=== PATIENT | female | born 1970 | race Caucasian/White ===

== ENCOUNTER 2022-01-27 22:24 | Emergency (ER) | payer BC, SELFPAY ==
[2022-01-27 22:32] VITALS: BP 134/78; PULSE 88; RESP 16; TEMP 36.6; O2SAT 98; BMI 31.0
--- NOTE | 2022-01-27 23:08 | CRLHL7_ITS ---
For Patients: As a result of the Century Cures Act, medical imaging exams and procedure reports are released immediately into your electronic medical record. You may view this report before your referring provider. If you have questions, please contact your health care provider. INDICATION: Mid-chest chest pain and into back TECHNIQUE: Chest radiograph 1 view COMPARISON: None FINDINGS: The sensitivity and specificity of the exam are moderately limited by the patient`s body habitus. Mediastinum: The mediastinum is normal in appearance. The heart silhouette is normal in size and morphology. Lung: Both lungs are unremarkable in appearance. No sign of pleural effusion seen. No pneumothorax is identified. Bone and Soft tissue: Unremarkable for age. IMPRESSION: 1. No acute cardiopulmonary disease is seen. Dictated by: Navin García MD @ 01/27/2022 23:32:10 (Electronically Signed)
[2022-01-27] MEDS: GI COCKTAIL (VISC LIDO/ANTACID) 30 ML PO (23:29)
[2022-01-27 23:40] VITALS: BP 100/56; PULSE 70; RESP 16; O2SAT 96
[2022-01-27 23:45] LABS: Albumin* 4.3 g/dL (3.3-5.0); Chloride* 103 mmol/L (96-114); Sodium* 138 mmol/L (135-149)
[2022-01-27 23:46] LABS: Potassium* 3.7 mmol/L (3.6-5.1)
[2022-01-27 23:48] LABS: Creatinine* 0.8 mg/dL (0.5-1.5); Est. Creatinine Clearance* 68.82; Estimated Glomerular Filt Rate 89 ml/min
[2022-01-27 23:49] LABS: Alanine Aminotransferase* 33 U/L (4-35); Alkaline Phosphatase* 81 U/L (40-150); Aspartate Amino Transferase* 29 U/L (12-35); Bilirubin Direct* 0.2 mg/dL (0.0-0.5); Bilirubin Total* 0.5 mg/dL (0.1-1.5); Blood Urea Nitrogen* 16 mg/dL (7-30); Calcium* 8.9 mg/dL (8.4-10.6); Carbon Dioxide* 28 mmol/L (20-32); Glucose* 133 mg/dL (60-115); Total Protein* 7.3 g/dL (6.0-8.3)
[2022-01-27 23:58] LABS: Troponin, Point-of-Care* 0.01 ng/ml (0.01-0.04)
[2022-01-28] VITALS: BP 89/64; PULSE 68; RESP 16; O2SAT 98
[2022-01-28 00:04] LABS: C Reactive Protein* < 0.5 mg/dL (0.5-1.0); Troponin I* < 0.01 ng/mL (0.01-0.04)
[2022-01-28 00:20] VITALS: BP 94/52; PULSE 65; RESP 16; O2SAT 96
--- NOTE | 2022-01-28 10:23 | ED_ITS ---
HPI - Chest Pain General Chief Complaint: Chest Pain Stated Complaint: CHEST PAINS Time Seen by Provider: 01/27/22 22:55 Source: patient and RN notes reviewed Mode of arrival: ambulatory Limitations: no limitations History of Present Illness HPI narrative: 51-year-old woman presenting to the emergency department accompanied by her complaint mid chest pain. About 8 hours ago started feeling heavy sensation there thought maybe was indigestion. Describes it as a pressure burning component as well. Thought maybe it was indigestion and 4 hours ago try Prilosec Tums and aspirin and forcing a belch. Trying to go to sleep tonight just could not get comfortable and was feeling more discomfort between her shoulder blades. Started having numbness or tingling is also in her right arm and more concerned. Otherwise not short of breath. No cough or cold symptoms recently. Discomfort is not really pleuritic. Does have an underlying history of celiac disease. 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 Does have semi recurrent urinary tract infections and is current finishing course of Keflex. Family history is noncontributory with maternal grandfather with coronary artery disease Initial blood pressure she notes rather elevated for her at 134 systolic. Related Data Home Medications Medication Instructions Recorded Confirmed levothyroxine 112 mcg tablet mcg 01/27/22 Allergies Allergy/AdvReac Type Severity Reaction Status Date / Time No Known Drug Allergies Allergy Verified 01/27/22 22:35 Review of Systems Status of ROS Reports: 6 or more systems reviewed and unremarkable except as noted in History and below [facility] Medical History Hypothyroid Social History Smoking Status: Never smoker Do you use any of these nicotine containing products: None How often do you have a drink containing alcohol: never AUDIT-C Alcohol total score: 0 Non-prescribed substance use: denies use Exam Narrative Exam Narrative: Pleasant. Good energy. NAD. Cranial nerves 2-12 intact. Moving all extremities without difficulty. Well perfused peripherally. Strong and Equal pulses upper extremities and equal femoral pulses. Skin is warm and dry. Some acneiform lesions on face. Mouth is moist Lungs are clear. No significant reproducible back pain. Cardiovascular regular rate and rhythm Abdomen is normoactive bowel sounds is a uncomfortable to palpation in the epigastrium. Const Vital Signs, click to edit/add: Vital Signs - 24 hr 01/27/22 22:32 01/27/22 23:40 01/28/22 00:00 Temperature 97.8 F Pulse Rate [Left Pulse Oximeter] 88 70 68 Respiratory Rate 16 16 16 Blood Pressure [Left Upper Arm] 134/78 100/56 L 89/64 L Pulse Oximetry 98 96 98 Oxygen Delivery Method Room Air Room Air Room Air 01/28/22 00:20 Temperature Pulse Rate [Left Pulse Oximeter] 65 Respiratory Rate 16 Blood Pressure [Left Upper Arm] 94/52 L Pulse Oximetry 96 Oxygen Delivery Method Room Air Course Course Hospital Course: Interviewed and exam as above Collected labs watched on monitor. Also ordered for GI cocktail. Reevaluation(s) Reevaluation #1: Overall improved with diminished burning sensation. Still with some sense of that pressure. And wanted to go home with normal labs and blood pressure improved. Vital Signs Vital signs: Initial Vital Signs Temperature 97.8 F 01/27/22 22:32 Temperature Source Temporal Artery Scan 01/27/22 22:32 Pulse Rate 88 01/27/22 22:32 Pulse Rhythm 01/27/22 22:32 Respiratory Rate 16 01/27/22 22:32 Blood Pressure 134/78 01/27/22 22:32 Blood Pressure Mean 96 01/27/22 22:32 Blood Pressure Position Sitting 01/27/22 22:32 Pulse Oximetry 98 01/27/22 22:32 Oxygen Delivery Method 01/27/22 22:32 Vital Signs Temperature 97.8 F 01/27/22 22:32 Pulse Rate 88 01/27/22 22:32 Respiratory Rate 16 01/27/22 22:32 Blood Pressure 134/78 01/27/22 22:32 Pulse Oximetry 98 01/27/22 22:32 Oxygen Delivery Method 01/27/22 22:32 Temperature 97.8 F 01/27/22 22:32 Pulse Rate 65 01/28/22 00:20 Respiratory Rate 16 01/28/22 00:20 Blood Pressure 94/52 L 01/28/22 00:20 Pulse Oximetry 96 01/28/22 00:20 Oxygen Delivery Method 01/28/22 00:20 MDM - Chest Pain MDM Narrative Medical decision making narrative: No Events on residential monitor. EKG reviewed by me shows normal sinus at 63 Labs are unremarkable. Troponin normal. Somewhat improved with GI cocktail. Discussed that this does not rule out cardiac etiology. Chest one-view portable without pneumothorax. WNL. Lab Data Attestation: I reviewed the patient's lab results. Labs: Lab Results 01/27/22 01/27/22 Range/Units 23:25 23:25 Sodium 138 (135-149) mmol/L Potassium 3.7 (3.6-5.1) mmol/L Chloride 103 (96-114) mmol/L Carbon Dioxide 28 (20-32) mmol/L BUN 16 (7-30) mg/dL Creatinine 0.8 (0.5-1.5) mg/dL Estimated Creat Clear 68.82 Estimated GFR 89 ml/min Glucose 133 H (60-115) mg/dL Calcium 8.9 (8.4-10.6) mg/dL Total Bilirubin 0.5 (0.1-1.5) mg/dL Direct Bilirubin 0.2 (0.0-0.5) mg/dL AST 29 (12-35) U/L ALT 33 (4-35) U/L Alkaline Phosphatase 81 (40-150) U/L Troponin I < 0.01 L (0.01-0.04) ng/mL C-Reactive Protein < 0.5 L (0.5-1.0) mg/dL Total Protein 7.3 (6.0-8.3) g/dL Albumin 4.3 (3.3-5.0) g/dL POC Troponin I 0.01 (0.01-0.04) ng/ml Discharge Plan Discharge Clinical Impression: Atypical chest pain Patient Disposition: Home w/ Parent or Adult Condition: Improved Additional Instructions: Consider taking an H2 chalo or proton pump inhibitor daily for a week or 2. Could also try liquid antacid /anti-gas for flare. Return for increasing in pain or pressure, particularly if associated with shortness of breath, lightheadedness and unrelieved with liquid antacid /anti- gas within an hour. Discuss with the primary care provider how you might want to work this up further. Prescriptions: No Action levothyroxine 112 mcg tablet Follow Up/Referrals: Yvette Leong MD [Primary Care Provider] - Stand Alone Forms: [employer] Info Instructions
== END 2022-01-28 00:37 | disposition home or self-care (01) ==
PROVIDERS: Emergency Provider Family Medicine; PCP Family Medicine
DX: R07.89 Other chest pain (principal)
CPT/HCPCS: 36415; 71045; 80048; 80076; 84484; 86140; 93005; 99283; 99284; 99285; A9270

== ENCOUNTER 2023-07-30 16:01 | Emergency (ER) | payer BC, SELFPAY ==
[2023-07-30 16:12] VITALS: BP 144/77; PULSE 86; RESP 16; TEMP 36.1; O2SAT 98
[2023-07-30 17:06] LABS: Appearance Urine Clear (Clear); Bilirubin Urine Negative (Negative); Blood Urine Trace-lysed (Negative); Color Urine Yellow (Yellow); Glucose Urine Negative (Negative); Ketones Urine Negative (Negative); Leukocyte Esterase Urine Negative (Negative); Nitrite Urine Negative (Negative); Protein Urine Negative (Negative); Urobilinogen Urine 0.2 (0.2-1.0)
--- NOTE | 2023-07-30 17:14 | ED_ITS ---
HPI - Abdominal Pain General Chief Complaint: Abdominal Pain Stated Complaint: abdominal pain Time Seen by Provider: 07/30/23 17:05 History of Present Illness HPI narrative: This 53-year-old female comes in reporting 3 days of lower abdominal pain that has a baseline mild constant component but gets significantly in the worse when standing up and stretching her abdomen. She does not report any fever, dysuria, or altered bowel function. She has not had any nausea and vomiting. She does not report any loss of appetite. She states that she did have some dysuria symptoms about a year ago and that was a small bladder tumor found that was removed and found to be benign. She reports that she has otherwise been in good health. 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 Related Data Home Medications Medication Instructions Recorded Confirmed levothyroxine 112 mcg tablet mcg 01/27/22 07/02/23 Allergies Allergy/AdvReac Type Severity Reaction Status Date / Time gluten Allergy Intermediate Verified 07/30/23 16:11 Review of Systems Status of ROS Reports: 10 or more systems reviewed and unremarkable except as noted in History and below Narrative Constitutional: No fevers, no weight gain or loss. Eyes: No discharge. No vision changes. HENT: No congestion, no sore throat, no ear pain. Cardiovascular: No chest pain, no palpitations. Respiratory: No shortness of breath, no wheezes, no cough. Gastrointestinal: No vomiting, no diarrhea. Lower abdominal pain as described above. Genitourinary: No dysuria, no hematuria. Musculoskeletal: Normal range of motion. Skin: No rashes, no pruritis. Neurological: No dizziness, weakness, sensory change, speech change. Endo/Heme/Allergies: No bruising or bleeding. No polydipsia. Pysch: no suicidality, no anxiety, no insomnia. All other systems reviewed and are negative. [facility] Medical History (Updated 07/30/23 @ 19:22 by Alvarez Ji MD) Benign bladder tumor ?D30.3 - Benign neoplasm of bladder (ICD-10) Pyelonephritis ?N12 - Tubulo-interstitial nephritis, not specified as acute or chronic (ICD- 10) Hypothyroid ?E03.9 - Hypothyroidism, unspecified (ICD-10) Surgical History (Updated 07/02/23 @ 19:46 by Brandy Doherty NP) S/P bladder tumor excision with fulguration ?Z98.890 - Other specified postprocedural states (ICD-10) Hx of cystoscopy ?Z98.890 - Other specified postprocedural states (ICD-10) Social History Smoking Status: Never smoker Do you use any of these nicotine containing products: None How often do you have a drink containing alcohol: never AUDIT-C Alcohol total score: 0 Non-prescribed substance use: denies use service: No Exam Narrative: Exam Narrative: Constitutional: Well-developed, well-nourished, no acute distress. HEENT: Normocephalic, atraumatic. Neck: Normal range of motion. Nontender. Supple. Heart: Regular. No murmurs. Normal rate. Intact distal pulses. Lungs: Clear to auscultation. No chest discomfort. No wheezes, rhonchi, or rales. Abdomen: Normal bowel sounds. Tenderness in the lower abdomen below the umbilicus. No rebound tenderness. Pain is reproducible when standing upright and stretching her abdomen. Genitalia: Deferred. Back: No midline tenderness. Normal range of motion. Extremities: Normal range of motion. No injury. Skin: Intact. No rash. Warm. No erythema or pallor. Neurologic: No altered sensation. No weakness. Alert and oriented. Psychiatric: No suicidality. No anxiety or depression. No insomnia. Nursing notes and vitals signs are reviewed. Const: Vital Signs, click to edit/add: Vital Signs - 24 hr 07/30/23 16:12 Temperature 97.0 F L Pulse Rate [Right Pulse Oximeter] 86 Respiratory Rate 16 Blood Pressure [Ri ght Upper Arm] 144/77 H Pulse Oximetry 98 Oxygen Delivery Me thod Room Air Course Vital Signs Vital signs: Initial Vital Signs Temperature 97.0 F L 07/30/23 16:12 Temperature Source Temporal Artery Scan 07/30/23 16:12 Pulse Rate 86 07/30/23 16:12 Pulse Rhythm Regular 07/30/23 16:12 Pulse Strength 3+ Normal 07/30/23 16:12 Respiratory Rate 16 07/30/23 16:12 Blood Pressure 144/77 H 07/30/23 16:12 Blood Pressure Mean 99 07/30/23 16:12 Blood Pressure Position Sitting 07/30/23 16:12 Pulse Oximetry 98 02/15/24 16:12 Oxygen Delivery Method Room Air 07/30/23 16:12 Vital Signs Temperature 97.0 F L 07/30/23 16:12 Pulse Rate 86 07/30/23 16:12 Respiratory Rate 16 07/30/23 16:12 Blood Pressure 144/77 H 07/30/23 16:12 Pulse Oximetry 98 07/30/23 16:12 Oxygen Delivery Method Room Air 07/30/23 16:12 Temperature 97.0 F L 07/30/23 16:12 Pulse Rate 86 07/30/23 16:12 Respiratory Rate 16 07/30/23 16:12 Blood Pressure 144/77 H 07/30/23 16:12 Pulse Oximetry 98 07/30/23 16:12 Oxygen Delivery Method Room Air 07/30/23 16:12 MDM - Abdominal Pain MDM Narrative Medical decision making narrative: This patient comes in with concern about pain in her lower abdomen that is reproducible when standing up straight and stretching of those structures. This is been present for several days and she does not report any particular injury event or strenuous activity. Urinalysis is obtained and shows no sign of hematuria or infection. An IV is established and labs acquired. Labs returned with normal results and CT imaging by my review shows no obvious findings. And we are awaiting Radiology over read but this is a slow process as CRL is not functioning currently. 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 I was agreeable to this plan is the patient does not have any abnormal vital signs, has normal bowel sounds, and does not have rebound tenderness. Given the fact that her abdominal pain is reproducible when standing up straight and stretching the musculature in structures of her lower abdomen this may be due to a musculoskeletal cause. Lab Data Labs: Lab Results 07/30/23 07/30/23 Range/Units 16:59 17:43 WBC 7.11 (4.50-11.00) K/uL RBC 5.05 (4.00-5.20) m/uL Hgb 14.5 (12.0-16.0) gm/dL Hct 44.8 (33.0-51.0) % MCV 89 (80-100) fL MCH 29 (26-34) pg MCHC 32 (32-36) gm/dL RDW Coeff of [place] 13.0 (11.5-15.5) % Plt Count 266 (140-440) K/uL Neut % (Auto) 38.2 L (42.0-72.0) % Lymph % (Auto) 43.6 (20-44) % [place] % (Auto) 7.3 (0.0-11.0) % Eos % (Auto) 10.1 H (0.0-7.0) % Baso % (Auto) 0.7 (0.0-3.0) % Neut # (Auto) 2.70 (1.7-7.0) K/uL Lymph # (Auto) 3.10 H (0.90-2.90) K/uL [place] # (Auto) 0.50 (0.00-0.90) K/UL Eos # (Auto) 0.70 H (0.00-0.50) K/uL Baso # (Auto) 0.05 (0.00-0.30) K/uL Abs Immat Gran (auto) 0.01 (0.00-0.30) K/uL Imm/Tot Granulo (auto) 0.1 % Sodium 140 (135-149) mmol/L Potassium 3.6 (3.6-5.1) mmol/L Chloride 104 (96-114) mmol/L Carbon Dioxide 30 (20-32) mmol/L Anion Gap 6 L (7-15) mEq/L BUN 18 (7-30) mg/dL Creatinine 0.8 (0.5-1.5) mg/dL Estimated Creat Clear 70.23 Estimated GFR 88 ml/min Glucose 98 (60-115) mg/dL Calcium 9.6 (8.4-10.6) mg/dL Urine Color Yellow (Yellow) Urine Appearance Clear (Clear) Urine pH 6.0 (5.0-8.5) Ur Specific [place] 1.010 (1.000-1.030) Urine Protein Negative (Negative) Urine Glucose (UA) Negative (Negative) Urine Ketones Negative (Negative) Urine Blood Trace-lysed A (Negative) Urine Nitrite Negative (Negative) Urine Bilirubin Negative (Negative) Urine Urobilinogen 0.2 (0.2-1.0) Ur Leukocyte Esterase Negative (Negative) Urine RBC 0-2 (0-2) Urine WBC 0-2 (0-5) Ur Squamous Epith Cells Few (None-Few) Urine Bacteria None (None) Discharge Plan Discharge Clinical Impression: Abdominal pain Patient Disposition: Home, Self-Care Condition: Stable Additional Instructions: Continue current plans. Use [id number] medicines as needed and directed. Follow up with MD or return if worsening. It Prescriptions: No Action levothyroxine 112 mcg tablet Follow Up/Referrals: Yvette Leong MD [Primary Care Provider] - Stand Alone Forms: [employer] Info Instructions
--- NOTE | 2023-07-30 17:31 | CT_ITS ---
Patient: DEEPA MASON Facility:?[facility] Patient ID:?[id number] Site Patient ID:?[id number]. Site :?[id number] Study:?CT-Abdomen/Pelvis W/ ISOVUE 370-07/30/2023 6:33:27 PM Ordering Physician:ERASTO Final Report: Indication: Lower abdominal pain Technique: Postcontrast CT abdomen and pelvis. 85 cc Isovue 370 intravenous contrast. Please note that all CT scans at this facility use dose modulation, iterative reconstruction, and/or weight-based dosing when appropriate to reduce radiation dose to as low as reasonably achievable. Comparison: None Findings: Mild dependent areas of atelectasis are present within the lung bases. The appendix is within normal limits. Mild fatty infiltration of the liver. 1 cm hypodensity is present within the right hepatic lobe which is too small to characterize but likely represents a benign finding. No ascites. The spleen is normal. Normal pancreas. Adrenal glands normal. Kidneys within normal limits. Gallbladder unremarkable. No adenopathy. No bowel obstruction. Bladder unremarkable. Right hip replacement hardware. No pelvic mass. Uterus and ovaries are normal. Mild diverticulosis. No diverticulitis. There is no fracture. Impression: No acute intra-abdominal or intrapelvic pathology. Mild diffuse hepatic steatosis. Probable cyst or hemangioma within the liver. This measures 1 cm. Further evaluation with targeted liver ultrasound is recommended to evaluate for the possibility of hemangioma. Preliminary report was provided at 07/30/2023 18:41:04. Please note that all CT scans at this facility use dose modulation, iterative reconstruction, and/or weight-based dosing when appropriate to reduce radiation dose to as low as reasonably achievable. Dictated by Jhonny Fleming MD @ 07/31/2023 2:31:45 PM Signed by:?Jhonny Fleming MD @07/31/2023 2:31:45 PM (Electronic Signature)
[2023-07-30 17:37] LABS: RBC Urine 0-2 (0-2); Squamous Epithelial Cell Urine Few (None-Few); WBC Urine 0-2 (0-5)
[2023-07-30 17:54] LABS: White Blood Count* 7.11 K/uL (4.50-11.00)
[2023-07-30 17:55] LABS: Basophils Absolute Auto 0.05 K/uL (0.00-0.30); Basophils Percent Auto 0.7 % (0.0-3.0); Eosinophils Percent Auto 10.1 % (0.0-7.0); Hematocrit 44.8 % (33.0-51.0); Hemoglobin* 14.5 gm/dL (12.0-16.0); Immature Granulocytes Abs Auto 0.01 K/uL (0.00-0.30); Immature Granulocytes Pct Auto 0.1 %; Lymphocytes Percent Auto 43.6 % (20-44); Mean Corpuscular HGB Conc 32 gm/dL (32-36); Mean Corpuscular Hemoglobin 29 pg (26-34); Mean Corpuscular Volume 89 fL (80-100); Monocytes Percent Auto 7.3 % (0.0-11.0); Neutrophils Percent Auto 38.2 % (42.0-72.0); Platelet Count* 266 K/uL (140-440); Red Blood Count 5.05 m/uL (4.00-5.20)
[2023-07-30 17:58] LABS: Slide Review Reflex No
--- OUTSIDE RECORDS SUMMARY | 2023-07-30 18:18 | XMS_ITS | Clinical Summary ---
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 [facility] Allergies No known active allergies Medications Medication Sig Dispensed Refills Start Date End Date Status Multiple Vitamins-Minerals (MULTIVITAMIN OR) Take 1 tablet by mouth daily (every 24 hours). 100 13 04/06/2007 Active omega-3 fatty acids (FISH OIL) 1000 MG capsule daily (every 24 hours). LW Comment:1200MG 10/02/2010 Active fexofenadine (OSMIN) 180 MG tablet Take 1 tablet by mouth daily as needed. LW Addl Instr:Indicated for: Allergies 30 11 10/02/2010 Active ALBUterol sulfate HFA 108 (90 BASE) MCG/ACT inhaler 1-2 puffs every 4 hours as needed. LW Addl Instr:Indicated for: Asthma 8.5 3 10/02/2010 Active cholecalciferol (VITAMIN D3) 1000 UNITS tabletIndications:INGRIS HALL ThuOctober 29, 2015 9:04 AM Taking 2000 IU QD Take 1 tablet by mouth daily (every 24 hours). 90 12/18/2009 Active Ascorbic Acid (VITAMIN C-HAN HIPS) 1000 MG tablet Take 1,000 mg by mouth daily. Active nitrofurantoin monohydrate macrocrystal (MACROBID) 100 MG capsuleIndications:U rinary Tract Infection Take 1 Capsule by mouth two times a day. Indications: Urinary Tract Infection 10 Capsule 10/18/2020 Active levothyroxine (SYNTHROID) 125 MCG tabletIndications:Hy pothyroidism, unspecified type (HRC) Take 1 Tablet by mouth daily. 90 Tablet 2 03/13/2021 Active Active Problems Problem Noted Date Diagnosed Date Blepharitis 12/25/2014 Celiac disease 04/08/2013 Overview: Elevated celiac antibodies but pt declined EGD because she eats a gluten free diet anyway since her daughter has celiac disease. Hypothyroidism 04/06/2007 Overview: Hypothyroidism Primary Immunizations Name Administration Dates Next Due Flu Vac Preserv Free (3+yrs) 04/14/2013,03/29/20 09,04/14/2007 [id number] 04/12/2009 Influenza IIV4 (Quadrivalent ) 0.5mL (00945) 03/19/2020,03/17/2019,03/16/2018,2016,06/06/2015 Influenza, Unspecified Formulation 03/16,04/16/2015,04/07/2014,2008,04/14/2007 MMR 01/30/2006 Pfizer Monovalent 12+ Purple Top 07/11/2020,01/0 11/2020 TDAP (ADACEL) 01/30/2006 Td 08/07/2015 Family History Medical History Relation Name Comments Celiac Disease Mother Celiac Disease Daughter Celiac Disease Maternal Grandfather Cancer, Breast Maternal Grandmother Cancer, Colon Maternal Grandmother Colon Polyps Maternal Uncle Cancer, Breast Paternal Grandmother Cancer Negative Family History Cancer, Endometrial Negative Family History Cancer, Uterine Negative Family History Diethylstilbestrol Exposure Negative Family History Prolapse/Pelvic Parts Falling Down Negative Family His tory Urinary Incontinence Negative Family History Relation Name Status Comments Father Alive Mother Alive Brother 1 Alive Brother 2 Alive Daughter Maternal Grandfather Maternal Grandmother Maternal Uncle Paternal Grandmother Sister Alive Social History Tobacco Use Types Packs/Day Years Used Date Smoking Tobacco: Never Smokeless Tobacco: Never Alcohol Use Standard Drinks/Week Comments Yes 2 (1 standard drink = 0.6 oz pur e alcohol) monthly PHQ-2 Answer Date Recorded PHQ-2 Score 0 06/05/2020 Sex and Gender Information Value Date Recorded Sex Assigned at Not on file Gender Identity Not on file Sexual Orientation Not on file Last Filed Vital Signs Vital Sign Reading Time Taken Comments Blood Pressure 113/76 10/17/2020 2:16 PM CDT Pulse 58 10/17/2020 2:16 PM CDT Temperature 36.7 ??C (98.1 ??F) 10/17/2020 2:27 PM CD T Respiratory Rate 18 12/04/2015 2:28 PM CDT Oxygen Saturation - - Inhaled Oxygen Concentration - - Weight 82.2 kg (181 lb 3.2 oz) 10/17/2020 2:16 P M CDT Height 160 cm (5' 2.99) 10/17/2020 2:16 PM CDT Body Mass Index 32.11 10/17/2020 2:16 PM CDT Plan of Treatment Health Maintenance Due Date Last Done Comments Hep C Screening (Preventive Services) 1970 HepB (1) 1970 Adult Preventive Visit 08/03/2019 08/03/2018 Zoster/Shingles (1 of 2) 2020 Mammogram 07/05/2021 07/05/2020, 06/15, 01/06/2018, Additional history exists Colonoscopy 10/02/2022 10/02/2017 (Completed) COVID-19 Vaccine ( season) 2023 07/11/2020, 06/20/2020 Influenza (#1) 2023 03/19/2020, 1008/2018, 03/16/2018, Additional history exists Cervical Cancer Screening 08/03/20232018, 08/07/2015, 04/08/2013, Additional history exists Cholesterol 06/05/2025 06/05/2020, 07/16, 08/07/2015, Additional history exists DTaP/Tdap/Td (3 - Tdap) 08/07/2025 08/07/2015, 01/30 HIV Screening (Preventive Services) Completed 06/05/2020 HepA Aged Out No longer eligi ble based on patient's age to complete this topic Hib Aged Out No longer eligi ble based on patient's age to complete this topic IPV (Polio) Aged Out No longer eligi ble based on patient's age to complete this topic MCV4 Aged Out No longer eligi ble based on patient's age to complete this topic Pneumococcal Aged Out No longer eligi ble based on patient's age to complete this topic Procedures Procedure Name Priority Date/Time Associated Diagnosis Comments MM MAMMOGRAM SCREENING BILAT W 3D WEI W CAD Routine 07/05/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 Screening breast examination HIV 1/2 AG/AB 4TH GEN Routine 06/05/2020 7:36 AM SHUTTLE TRUCK DRIVER Screening for HIV (human immunodeficiency virus) LIPID PANEL & DIRECT LDL (IF NEEDED) Routine 06/05/2020 7:36 AM SHUTTLE TRUCK DRIVER Hyperlipidemia, unspecified hyperlipidemia type ANATOMICAL PATH LIQUID BASED Routine 08/03/2018 10:09 AM SHUTTLE TRUCK DRIVER from Last 3 Months or Most Recently Relevant to Health Maintenance Results * (ABNORMAL) MM Mammogram Screening Bilat W 3D Wei W CAD (07/05/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) Anatomical Region Laterality Modality Breast Bilateral Mammography Impressions 07/05/2020 10:49 AM SHUTTLE TRUCK DRIVER : ACR BI-RADS Category 0: Need Additional Imaging Evaluation RECOMMENDATION: Spot Tomosynthesis The results and recommendations of this examination will be communicated to the patient and the imaging center will attempt to schedule any recommended follow up with the patient. Narrative 07/05/2020 10:49 AM SHUTTLE TRUCK DRIVER MM MAMMOGRAM SCREENING BILAT W 3D WEI W CAD performed on 07/05/20 Compared to: 06/28/2019 MM Mammogram Screening Bilat W 3D Wei W CAD, 01/06/2018 MM Mammogram Screening Bilat W CAD, and 10/07/2016 MM Mammogram Screening Bilat W CAD ?? FINDINGS: Bilateral screening mammogram was performed with the assistance of Computer-Aided Detection and breast tomosynthesis. The breasts are heterogeneously dense, which may obscure small masses. There is an asymmetry in the right breast on the CC view laterally at posterior depth. The remainder of the breast tissue is unremarkable. Hillary Dawson MD RAD LUIS * HIV 1/2 Ag/Ab 4th Generation (06/05/2020 7:36 AM SHUTTLE TRUCK DRIVER) HIV 1/2 Antigen/Antib richard (4th generation) Negative (Non Reactive) Negative (Non Reactive) 06/05/2020 2:00 PM SHUTTLE TRUCK DRIVER [facility] Comment:HIV-1 p24 Antigen an d HIV-1/HIV-2 Antibody not detected Blood Venipuncture / Unknown 06/05/2020 7:36 AM SHUTTLE TRUCK DRIVER 06/05/2020 7:36 AM SHUTTLE TRUCK DRIVER Hillary Dawson MD LAB_1 Performing Organization Address [facility] Co de Phone Number [facility] [address] * (ABNORMAL) Lipid Panel - LDLD If Trig High (06/05/2020 7:36 AM SHUTTLE TRUCK DRIVER) Cholesterol 265(H) 0 - 199 mg/dL 06/05/2020 9:58 AM [facility] Triglyceride 225(H) <=149 mg/dL 06/05/2020 9:58 AM [facility] HDL Cholesterol 53 >=40 mg/dL 0 9:58 AM [facility] LDL, Calculated 167(H) <130 mg/dL 0 9:58 AM [facility] Non HDL Chol, Calculated 212 mg/dL 06/05/2020 9:58 AM [facility] Cholesterol/HDL Ratio 5.0 06/05/2020 9:58 AM [facility] Hours Fasting 12 06/05/2020 9:58 AM [facility] Blood Venipuncture / Unknown 06/05/2020 7:36 AM SHUTTLE TRUCK DRIVER 06/05/2020 7:36 AM SHUTTLE TRUCK DRIVER Hillary Dawson MD LAB_1 Performing Organization Address City/[facility]/ZIP Co de Phone Number [facility] [address] [place] [address], [facility] [phone] * Pap Smear (08/03/2018 10:09 AM SHUTTLE TRUCK DRIVER) 08/03/2018 10:0 9 AM SHUTTLE TRUCK DRIVER Narrative CONOR RODRIGUEZ - 08/24/2018 4:12 PM CDT FINAL GYNECOLOGICAL CYTOLOGY REPORT Pathology #: [id number] ?Date Obtained: 08/03/2018 ? Date Received: 08/04/2018 INTERPRETATION/RESULTS: Negative for Intraepithelial Lesion or Malignancy. Fungal organisms morphologically consistent with Leeann species. SPECIMEN ADEQUACY: Satisfactory for Evaluation. ??Endocervical cells/transformation zone component present. Verified on 08/19/2018 ??by NADIA QUEZADA, CT(ASCP) (electronic signature) CLINICAL NOTES: ?Abnormal bleeding: No, LMP: 07/29/18, Menstrual status: None ?Apply, Current form of therapy: None apply LIQUID BASED PAP SMEAR SPECIMEN TYPE: ?ROUTINE CERVICAL PAP TEST PLEASE NOTE: The pap smear is a screening test designed to aid in the detection of cervical cancer and its precursor lesions. It is not a diagnostic procedure and should not be used as the sole means of detecting cervical cancer. Both false-positive and false-negative reports may occur. 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
--- OUTSIDE RECORDS SUMMARY | 2023-07-30 18:18 | XMS_ITS | Data Portability ---
Author Name Unknown Address [address] [place] [address] Phone [phone] Organization [facility], [facility] Address [address] [place] [address] Care Team Providers Care Customer Operations Associate Name Role Phone JAKFLYNN BAEZ Referring Provider EVARISTO TREVIÑO Primary Care Provider [phone] Assessment No assessment recorded. Plan of Treatment Reminders Order Date Submit Date Provider Last Modified By Organization Details Last Modified Time Details Appointments NEW PATIENT 20 2023 02:50P Judy Cruz MD Not available Not available Not available Lab None recorded. Referral None recorded. Procedures None recorded. Surgeries transuret hral resection of bladder tumor (SURG) 2021 [email or web address] 9 [facility], [address] [place] [address], [id number], 04/25/2022 10:37:45 Imaging US, renal - PLEASE CONTACT PATIENT TO SCHEDULE microscop ic hematuria 2021 [email or web address] [facility], [address] [place] [address], [id number], 04/07/2022 09:27:08 Medication Orders Bactrim DS 800 mg-160 mg tablet 2021 [address] [id number] [facility] [employer], [facility] [address], [address], 10/01/2022 16:11:36 Patient TargetsNo targets recorded. Patient Instructions Encounter Date Encounter Id Patient Instructions Last Modified By Organization Details Last Modified Time 10/01/2022 [id number] Bladder was norm al on cystoscopy today. Will do one more surveillance cystoscopy in 1 year. 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 Benign. Will repeat a cystoscopy in 6 months. Dysuria: Possible UTI. Will start Bactrim x 3 days. Not available 04/04/2022 15:49:18 03/13/2022 [id number] Bladder lesion/microscopic hematuria: Bladder lesion on the midline trigone seen on cystoscopy. It has the appearance of squamous metaplasia. I recommend TURBT ( transurethral resection of bladder tumor). Risks and benefits discussed. Will arrange. Will also get a renal ultrasound for completion of her microscopic hematuria work up. TURBT Risks (transurethral resection of bladder tumor) I discussed the procedure with the patient in details, and informed them of the different steps and the possible complications and side effects, such as and not only, infection, bleeding, urethral stricture, ureteral strictures, bladder perforation, injury to bowel if the tumor is anterior or at the dome, increased LUTS (lower urinary tract symptoms such as frequency, urgency, and burning/pain with voiding), and complications related to anesthesia such as cardiovascular and pulmonary complications. All patient questions were answered. Not available 03/13/2022 14:21:13 Reason for Referral None Reported. Results Created Date Observation Date Name Description Value Unit Range Abnormal Flag LastModifiedBy Organization Detail LastModifiedTime Result Notes None recorded. Problems Name Status Onset Date Resolution Date Notes Provider Name and Address Organization Details Recorded Time Neoplasm of bladder Active 03/12/20 22 Jhonny Cruz MD [address] [place] [address],[address] [place] [address], [phone], [facility] 03/12/2022 22:04:26 Microscopic hematuria Active 03/13/20 22 Jhonny Cruz MD [address] [place] [address],[address], [phone], [facility] 03/13/2022 14:21:20 Problem Notes None recorded. Procedures Surgical History Date Name Laterality Status Provider Name and Address Organization Details Recorded Time 3 Cystoscopy- female completed Jhonny Cruz MD [address] [place] [address],[address], [place], [address], [facility] 10/01/2022 16:21:10 Cystoscopy- female completed Jhonny Cruz MD [address] [facility],[address], [place], [address], [facility] 03/13/2022 14:20:33 Cystoscopy completed Not Available Health Note 1 16:22:00 Imaging Results None recorded. Procedure Notes None recorded. Medical Equipment None Reported. Allergies No known drug allergies Medications Name Sig Start Date Stop Date Status Note LastModified by Organization Details LastModified Time amoxicill in 500 mg capsule TAKE 4 CAPSULES BY MOUTH NOW 03/13 completed Not Available Not Available Not Available hydrocodo ne 5 mg-acetam inophen 325 mg tablet 10/01 completed Not Available Not Available Not Available clindamyc in HCl 150 mg capsule 10/01 completed Not Available Not Available Not Available sulfameth oxazole 800 mg-trimet hoprim 160 mg tablet TAKE 1 TABLET BY MOUTH EVERY 12 HOURS FOR 3 DAYS 10/01 completed Not Available Not Available Not Available minoxidil 2.5 mg tablet 10/01 completed Not Available Not Available Not Available cephalexi n 500 mg capsule TAKE ONE CAPSULE BY MOUTH THREE TIMES DAILY FOR 7 DAYS 03/13 completed Not Available Not Available Not Available levothyro xine 125 mcg tablet 03/13 completed Not Available Not Available Not Available metoprolo l tartrate 50 mg tablet active Not Available Not Available Not Available epinephri ne 0.3 mg/0.3 mL injection , auto-inje ctor 03/13 completed Not Available Not Available Not Available estradiol 0.01% (0.1 mg/gram) vaginal cream 10/01 completed HN: Patient reports no longer taking Not Available Not Available Not Available methylpre dnisolone 4 mg tablets in a dose pack USE PER PACKAGE DIRECTIO NS 03/13 completed Not Available Not Available Not Available doxycycli ne hyclate 20 mg tablet 10/01 completed Not Available Not Available Not Available oxybutyni n chloride 5 mg tablet 10/01 completed Not Available Not Available Not Available levothyro xine 112 mcg tablet active Not Available Not Available Not Available levothyro xine 112mcg 1/day 10/01 completed Not Available Not Available Not Available Alaway 0.025 % (0.035 %) eye drops USE 1 DROP IN BOTH EYES TWICE A DAY 03/13 completed Not Available Not Available Not Available Flowflex COVID-19 Antigen Home Test kit 10/01 completed Not Available Not Available Not Available Vitals Date Recorded Body weight Body height Body mass index (BMI) Provider Name and Address Organization Details Last Updated DateTime 03/13/2022 [id number] 46133 g 160.02 cm 32.8 kg/m2 Not Available Health Note 03/13/2022 13:32:44 Date Recorded Body height Body mass index (BMI) Body weight Provider Name and Address Organization Details Last Updated DateTime 10/01/2022 160.02 cm 33.7 kg/m2 30952.[facility] 10/01/2022 16:10:43 Social History Question Answer Notes LastModified by Organizat ion Details LastModified Time Tobacco Smoking Status Never Smoker Not Available Health Note 03/31/2022 16:22:01 What Is Your Level Of Alcohol Consumption? Occasional [email or web address] Information not available 03/31/2022 What Is Your Level Of Caffeine Consumption? Occasional [email or web address] Information not available 03/31/2022 How Much Tobacco Do You Chew? None [email or web address] Information not available 03/31/2022 Do You Or Have You Ever Used E-cigarettes Or Vape? Never Used Electronic Cigarettes [email or web address] Information not available 03/31/2022 Number Of Pregnancies 3 [email or web address] Information not available 03/11/2022 Number Of Vaginal Deliveries 3 [email or web address] Information not available 03/11/2022 Number Of Caesarean Sections 0 [email or web address] Information not available 03/11/2022 What Was The Date Of Your Most Recent Tobacco Screening? 10/01/2022 Information not available 10/01/2022 What Is Your Relationship Status? [email or web address] Information not available 03/11/2022 Are You Sexually Active? Yes [email or web address] Information not available 03/11/2022 Do You Or Have You Ever Used Smokeless Tobacco? Never Used Smokeless Tobacco [email or web address] Information not available 03/31/2022 Do You Use Any Illicit Or Recreational Drugs? No [email or web address] Information not available 03/31/2022 Has Tobacco Cessation Counseling Been Provided? No Information not available 10/01/2022 Sex: Female Functional Status None recorded. Mental Status None recorded. Family History Relationship Description Onset Age of this Age Resolved Age Notes Maternal Grandmother Family history of breast cancer Maternal Grandmother Family history of cancer of colon Maternal Grandfather Family history of diabetes mellitus Maternal Grandfather Family history of cardiac disorder Medical History Condition Response Sexually Transmitted Infection N Diabetes N Bleeding Disorder N High Blood Pressure N Kidney Stones N Cancer N Depression N Lung Disease N High Cholesterol N GERD/Acid Reflux N Heart Disease N Gynecological History Statement/Question Response If Post Menopausal, Age at Menopause 51 Leaking urine with intercourse N Hormone Therapy Y Sexually Active? Y Pain with intercourse N Obstetrics History GPAL:G 0 P 0 0 0 0 Immunizations Vaccine Type Date Status Provider Name and Address Organization Details Recorded Time SARS-COV-2 (COVID-19) vaccine, UNSPECIFIED 04/13/2021 completed Not Available [facility] 04/04/2022 15:32:54 [facility]/30/2006 [facility]/13/2022 13:50:59 influenza, injectable, quadrivalent, preservative free 03/17/2019 [facility]/13/2022 13:50:59 influenza, unspecified formulation 03/29/2009 [facility] 03/13/2022 13:50:59 COVID-19, mRNA, LNP-S, PF, 30 mcg/0.3 mL dose 07/11/2020 [facility]/13/2022 13:50:59 influenza, injectable, quadrivalent, preservative free 03/16/2017 [facility]/13/2022 13:50:59 influenza, injectable, quadrivalent, preservative free 03/19/2020 completed Lyudmila gary [facility] 03/13/2022 13:50:59 influenza, injectable, quadrivalent, preservative free 03/16/2018 completed Lyudmila gary [facility] 03/13/2022 13:50:59 COVID-19, mRNA, LNP-S, PF, 30 mcg/0.3 mL dose 03/26/2021 [facility] 13:50:59 Tdap 01/30/2006 [facility]22 13:50:59 influenza, injectable, quadrivalent, preservative free 03/18/2021 completed Lyudmila gary, [facility] 03/13/2022 13:50:59 Novel [id number], all formulations 04/12/2009 [facility]/13/2022 13:50:59 influenza, unspecified formulation 04/14/2007 [facility]/13/[facility]22 13:50:59 influenza, unspecified formulation 04/07/2014 [facility]/13/2022 13:50:59 Td (adult), 2 Lf tetanus toxoid, preservative free, adsorbed 08/07/2015 [facility]22 13:50:59 influenza, unspecified formulation 04/16/2015 [facility]/13/2022 13:50:59 Influenza, seasonal, injectable, preservative free 04/14/2013 [facility]/13/[facility]22 13:50:59 COVID-19, mRNA, LNP-S, PF, 30 mcg/0.3 mL dose 06/20/2020 [facility] [place] [facility]/13/2022 13:50:59 influenza, injectable, quadrivalent, preservative free 06/06/2015 [facility]/13/2022 13:50:59 SARS-COV-2 (COVID-19) vaccine, UNSPECIFIED 04/14/2021 completed Not Available [facility] 04/04/2022 15:32:54 Past Encounters Encounter ID Performer Location Encounter Start Date Encounter Closed Date Diagnosis/Indication [id number] Jhonny Cruz MD [facility] [address] [place] [id number] 03/13/2022 13:31:44 03/13/2022 16:11:28 Neoplasm of bladder Microscopic hematuria [id number] Jhonny Cruz MD [facility] [address] [place] [id number] 04/04/2022 15:32:01 04/04/2022 16:08:16 Neoplasm of bladder Dysuria [id number] Jhonny Cruz MD [facility] [address] [place] [id number] 10/01/2022 15:59:46 10/01/2022 16:29:04 Neoplasm of bladder Health Concerns Section Related Observation LastModified by Organization Detai ls LastModified Time None Recorded Concern Status LastModified by Organization Details LastModified Time None Recorded Advance Directives Directive None Recorded Payers Encounter Date Sequence Insurance Name Policy Number Policy Patel Covered Member ID Patel Member ID Guarantor Name 10/01/2022 1 [place] [id number] Kelley Carson [id number] Kelley Carson 04/04/2022 1 [place] [id number] Kelley Carson [id number] Kelley Carson 03/13/2022 1 [place] [id number] Kelley Carson [id number] Kelley Carson Notes Date Note Type Note Provider Name and Address Organization Details Recorded Time 03/13/2022 text/html HPI Notes: 03/12/22: Hypothyroidism, celiac disease, s/p TOT sling, s/p right SINA. UA 12/10/21 = moderate blood, neg nit/LE, 6-10 RBC/hpf, 11-25 WBC/hpf. UCx 12/10/21 = negative. UA 01/17/22 = small LE, large LE, neg nit, 3-5 RBC/hpf, >100 WBC/hpf. UCx 01/17/22 = >100K E. coli. UA 02/04/22 = small blood, neg nit/LE, 0-2 RBC/hpf, 0-2 WBC/hpf. Saw Dr. Flynn Kendall (QUOTATION CLERK) 02/12/22 for microscopic hematuria work up -> cystoscopy showed some squamous metaplasia and a circular raised lesion at the midline trigone. Referred for the lesion seen on the trigone. She saw Urogyn because she was trying to figure out why she has having microscopic hematuria and recurrent UTIs. No gross hematuria. No dysuria. She has a mid-urethral sling placed around 2015. She has not had any imaging of her kidneys for the microscopic hematuria. 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 UA 12/10/21 = moderate blood, neg nit/LE, 6-10 RBC/hpf, 11-25 WBC/hpf. UCx 12/10/21 = negative. UA 01/17/22 = small LE, large LE, neg nit, 3-5 RBC/hpf, >100 WBC/hpf. UCx 01/17/22 = >100K E. coli. UA 02/04/22 = small blood, neg nit/LE, 0-2 RBC/hpf, 0-2 WBC/hpf. Saw Dr. Flynn Kendall (QUOTATION CLERK) 02/12/22 for microscopic hematuria work up -> cystoscopy showed some squamous metaplasia and a circular raised lesion at the midline trigone. Referred for the lesion seen on the trigone. She saw Urogyn because she was trying to figure out why she has having microscopic hematuria and recurrent UTIs. No gross hematuria. No dysuria. She has a mid-urethral sling placed around 2015. She has not had any imaging of her kidneys for the microscopic hematuria. 04/04/22: S/p TURBT 03/28/22 of the trigone lesion -> deeper resection than anticipated so kept catheter until morning of 04/04/22. Pathology = cystitis cystica, no cancer. Here for follow up. She removed the catheter around 530 am and she voided since that time. Over the last 2 days, she has had some burning and lower abdominal pain that is similar to prior UTIs. No fevers. 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 UA 12/10/21 = moderate blood, neg nit/LE, 6-10 RBC/hpf, 11-25 WBC/hpf. UCx 12/10/21 = negative. UA 01/17/22 = small LE, large LE, neg nit, 3-5 RBC/hpf, >100 WBC/hpf. UCx 01/17/22 = >100K E. coli. UA 02/04/22 = small blood, neg nit/LE, 0-2 RBC/hpf, 0-2 WBC/hpf. Saw Dr. Flynn Kendall (QUOTATION CLERK) 02/12/22 for microscopic hematuria work up -> cystoscopy showed some squamous metaplasia and a circular raised lesion at the midline trigone. Referred for the lesion seen on the trigone. She saw Urogyn because she was trying to figure out why she has having microscopic hematuria and recurrent UTIs. No gross hematuria. No dysuria. She has a mid-urethral sling placed around 2015. She has not had any imaging of her kidneys for the microscopic hematuria. 04/04/22: S/p TURBT 03/28/22 of the trigone lesion -> deeper resection than anticipated so kept catheter until morning of 04/04/22. Pathology = cystitis cystica, no cancer. Here for follow up. She removed the catheter around 530 am and she voided since that time. Over the last 2 days, she has had some burning and lower abdominal pain that is similar to prior UTIs. No fevers. 10/01/22: Here for cystoscopy. Doing well. No dysuria. No gross hematuria. No new medical issues or surgeries. 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
--- OUTSIDE RECORDS SUMMARY | 2023-07-30 18:18 | XMS_ITS | Clinical Summary ---
Author Name Unknown Organization [facility] Address [place], [place] [address] Care Team Providers Care Design Engineering Intern Name Role Phone Neil Carlos MD Unavailable [phone] Veronika Perez RN Unavailable Unavailab Yvette David MD Primary Care Provider [phone] Allergies No known active allergies Medications Medication Sig Dispensed Refills Start Date End Date Status MULTIVITAMIN TAB take 1 tablet by oral route once daily with food 0 Active cholecalciferol (VITAMIN D3) 1,000 unit tablet Take 1 tablet. by mouth. 0 12/18/2009 Active ascorbic acid, vitamin C, (VITAMIN C) 1,000 mg tablet Take 1,000 mg by mouth once daily. 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 2 Each 1 10/03/2021 Active COVID-19 antigen test (Flowflex COVID-19 Ag Home Test) kit use as directed on packaging 4 Kit 10/08/2021 Active clindamycin (CLEOCIN) 150 mg capsuleIndications:Af tercare following surgery of the musculoskeletal system Take 2 capsules (300 mg) ONE hour prior to appointment, THEN take 1 capsule (150 mg) SIX hours after first dose. 3 Capsule 3 03/10/2022 Active COVID-19 antigen test (Flowflex COVID-19 Ag Home Test) kit USE DIRECTED ON PACKAGING. 4 Kit 02/18/2023 Active levothyroxine (SYNTHROID) 112 mcg tabletIndications:Hyp othyroidism (acquired) Take 1 Tablet (112 mcg) by mouth once daily. 90 Tablet 0 04/17/2023 Active COVID-19 antigen test (Flowflex COVID-19 Ag Home Test) kit Use as directed on packaging. 4 Kit 06/17/2023 Active Active Problems Problem Noted Date Diagnosed Date s/p right 2-incision total hip arthroplasty 11/27/2020 Blepharitis 12/25/2014 Hypothyroidism 04/10/2014 Hypokalemia 04/10/2014 Chest tightness or pressure 03/30/2014 Celiac disease 04/08/2013 Overview: Overview: Elevated celiac antibodies but pt declined EGD because she eats a gluten free diet anyway since her daughter has celiac disease. Elevated celiac antibodies but pt declined EGD because she eats a gluten free diet anyway since her daughter has celiac disease. Hypothyroidism 04/06/2007 Overview: Hypothyroidism Primary Resolved Problems Problem Noted Date Diagnosed Date Resolved Date Primary osteoarthritis of right hip 07/30/2020 11/27/2020 Immunizations Name Administration Dates Next Due COVID-19 vaccine ([employer] 30mcg/0.3mL) PF, MDV 07/11/2020,06/20/2020 07/11/2020 Covid-19 Vaccine (Unspecified) 04/13/2021 Influenza A (H1N1), Inactivated 04/12/2009 Influenza Virus, Unspecified 03/16/2017, 04/16/2015,04/07/2014,03/29,03/29/2009,04/14/2007,04/14/2007 Influenza, IIV3 (Age 6-35 mos) 04/14/2013 Influenza, IIV4 03/18/2021,,03/17/2019,03/16,03/16/2017,06/06/2015 MMR 01/30/2006 Td (Age >=7 Years) 08/07/2015 Tdap 01/30/2006 Family History Medical History Relation Name Comments Hyperlipidemia Brother 1 older Celiac disease Maternal Grandfather Diabetes type II Maternal Grandfather Cancer-breast Maternal Grandmother Cancer-colon Maternal Grandmother Celiac disease Mother Hyperlipidemia Mother Cancer-ovarian No Family History Heart Disease No Family History Relation Name Status Comments Brother 1 older Alive Brother 2 Alive Father Alive Maternal Grandfather Maternal Grandmother Mother Alive Paternal Grandfather Dad adopted Paternal Grandmother Dad adopted Sister Alive Social History Tobacco Use Types Packs/Day Years Used Date Smoking Tobacco: Never Smokeless Tobacco: Never Tobacco Cessation:Counseling Given: Yes Alcohol Use Standard Drinks/Week Comments Yes 1 (1 standard drink = 0.6 oz pur e alcohol) 1 glass every 2 weeks PHQ-2 Answer Date Recorded PHQ-2 TOTAL SCORE 0 10/03/2021 Social Connections Answer Date Recorded Frequency of Communication with Friends and Fami ly Not on file 10/07/2022 Financial Resource Strain Answer Date R ecorded Difficulty of Paying Living Expenses 3 10/03/2021 Difficulty of Paying Living Expenses Not on file 10/03/2021 Food Insecurity Answer Date Recorded Worried About Running Out of Food in the Last Ye ar 1 10/03/2021 Transportation Needs Answer Date Record ed Lack of Transportation (Medical) 1 10/03/2021 Housing Stability Answer Date Recorded Unable to Pay for Housing in the Last Year 1 10/03/2021 Sex and Gender Information Value Date Recorded Sex Assigned at Not on file Gender Identity Not on file Sexual Orientation Not on file Obstetrics History Para Term AB IAB SAB Ectopic Multiple Livin g Live Births 3 2 2 0 1 0 1 0 1 3 3 Date Outcome GA Total Labor Labor/2nd/3rd Weight Sex Delivery Anes PTL Kami A1 A5 Name Cl in SAB 1999 Term F Vag Connie ng 2001 Term F Vag Connie ng Term M Vag Connie ng Last Filed Vital Signs Vital Sign Reading Time Taken Comments Blood Pressure 102/68 03/18/2023 11:11 AM CDT Pulse 53 03/18/2023 11:11 AM CDT Temperature 36.2 ??C (97.1 ??F) 03/28/2022 12:00 PM C DT Respiratory Rate 16 03/28/2022 12:00 PM CDT Oxygen Saturation 99% 03/18/2023 11:11 AM CDT Inhaled Oxygen Concentration - - Weight 83.6 kg (184 lb 6.4 oz) 03/18/2023 11:11 AM CDT Height 162.6 cm (5' 4) 03/28/2022 8:00 AM CDT Body Mass Index 31.65 03/28/2022 8:00 AM CDT Plan of Treatment Upcoming Encounters Date Type Department Care Team (Late st Contact Info) Description 08/04/2023 9:30 AM 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 Office Visit [facility] [address] [place] [address] Grace Conde PA [address] [place] [address] Health Maintenance Due Date Last Done Comments HIV for age 15-65 1985 Hepatitis C screening for age 18-79 1988 Zoster (shingles) series for age 50+ (1 of 2) 2020 Depression screening for age 12+ 10/03/2022 10/03/2021, 10/11/2020 COVID-19 vaccine series ( season) 2023 04/13/2021, 03/26/2021, 07/11/2020, Additional history exists Influenza for age 50-64 02/13/2023 03/18/20, 03/19/2020, 03/17/2019, Additional history exists BMI (ht and wt on same day) for age 18+ 03/26/2023 03/26/2022, 10/03/2021, 10/11/2020, Additional history exists Pap test for age 21-65 08/03/2023 9 (Verified in Care Everywhere or Patient Record) Mammogram for age 45-75 12/02/2023 12/02/19, 11/26/2021, 07/10/2020, Additional history exists Tetanus booster 08/07/2025 08/07/2015, 01/30/2006 Lipids for age 45-75 08/20/2027 08/19/2022, 10/03/2021, 06/05/2020 (Verified in Care Everywhere or Patient Record), Additional history exists Colonoscopy through age 75 10/29/202710/28, 10/02/2017, 10/02/2017 (Completed outside of [facility]) Tdap Completed 01/30/2006 Pneumococcal series for age 6-64 Aged Out No longer eligible based on patient's age to complete this topic Medical Devices Implanted Type Area Customer Servicer Device Identifier Shelf Expiration Date Model / Serial / Lot Shell Hip Od46mm 3 Hole R3 Pe - [id number] Implanted:Qty: 1 on 11/15/2020 by Phil Miller MD at Right: [employer] 08/21/2030 [id number] / / [id number] Screw Hip 6.5x30mm Reflection Reconstrt - [id number] Implanted:Qty: 1 on 11/15/2020 by Phil Miller MD at Right: [employer] 08/19/2030 [id number] / / [id number] Liner Hip Id28 Od46mm 20 Deg R3 Xlpe - [id number] Implanted:Qty: 1 on 11/15/2020 by Phil Miller MD at Right: [employer] 08/14/2030 [id number] / / [id number] Stem Hip Sz 4 Anthology Std Offpors - [id number] Implanted:Qty: 1 on 11/15/2020 by Phil Miller MD at Right: [employer] 01/28/2029 [id number] / / [id number] Head Hip Od28mm +0 05/28 Oxinium Oxin - [id number] Implanted:Qty: 1 on 11/15/2020 by Phil Miller MD at Right: [employer] 08/08/2030 [id number] / / [id number] Advance Directives Latest Code Status on File Code Status Date Activated Date Inactivated Comments Full Code 03/28/2022 7:40 AM 03/29/2022 2:29 AM Lotus ivetd be discussed pre operatively with anesthesia or surgeon Question Answer Comments Code Status Discussion: Not Discussed Code Status History Code Status Date Activated Date Inactivated Comments Full Code 11/15/2020 5:51 AM 11/15/2020 2:37 PM Question Answer Comments Code Status Discussion: Discussed Full Code 04/10/2014 5:37 AM 04/10/2014 4:24 PM Care Teams Design Engineering Intern Relationship Specialty Start Date End Date Yvette Leong MD [address] [place] [address] PCP - General Family Practice 10/03/21 Neil Carlos MD [address] [place] [address] Consulting Physician Cardiovascular Disease 03/30/14 Veronika Perez, brush loader and handle attacher Nurse Navigator Registered Nurse 07/30/20
[2023-07-30 18:45] LABS: Chloride* 104 mmol/L (96-114); Potassium* 3.6 mmol/L (3.6-5.1); Sodium* 140 mmol/L (135-149)
[2023-07-30 18:48] LABS: Anion Gap 6 mEq/L (7-15); Blood Urea Nitrogen* 18 mg/dL (7-30); Carbon Dioxide* 30 mmol/L (20-32); Creatinine* 0.8 mg/dL (0.5-1.5); Est. Creatinine Clearance* 70.23; Estimated Glomerular Filt Rate 88 ml/min; Glucose* 98 mg/dL (60-115)
[2023-07-30 18:49] LABS: Calcium* 9.6 mg/dL (8.4-10.6)
--- NOTE | 2023-07-30 19:31 | PC.NURSE ---
Patient left without discharge instructions.
== END 2023-07-30 19:30 | disposition home or self-care (01) ==
PROVIDERS: Emergency Provider Emergency Medicine Emergency Medical Services; PCP Family Medicine
DX: R10.9 Unspecified abdominal pain (principal)
CPT/HCPCS: 36415; 74177; 80048; 81001; 85025; 99284; Q9967

== ENCOUNTER 2023-10-08 02:14 | Emergency (ER) | payer BC, SELFPAY ==
--- NOTE | 2023-10-08 02:15 | ED_ITS ---
HPI - General Adult General Time Seen by Provider: 02:15 Date Seen: 10/08/23 Chief complaint: Chest Pain Stated complaint: chest pain Time Seen by Provider: 10/08/23 02:17 Source: patient, RN notes reviewed and old records reviewed Mode of arrival: ambulatory Limitations: no limitations History of Present Illness HPI narrative: 53-year-old female who comes in today with chest pain. Review of prior records shows patient was previously seen for chest pain in January 2022 with negative workup at that time, also seen with abdominal pain in July 2023 which was lo wer abdominal pain. Patient presents tonight with right-sided chest pain is he describes as burning that started about an hour prior to coming emergency department. She is asleep the time. Denies nausea vomiting, says she feels a little lightheaded. Took Prevacid with no relief. Patient reports he was seen previously for this an outside facility, negative cardiac evaluation at that time and recently had a Zio patch as well, results are pending. Denies recent illness. Related Data Home Medications Medication Instructions Recorded Confirmed levothyroxine 112 mcg tablet mcg 01/27/22 07/02/23 aspirin 81 mg capsule 81 mg PO DAILY 10/08/23 10/08/23 cholecalciferol (vitamin D3) .ROUTE 10/08/23 famotidine 10 mg tablet (Pepcid AC) 10 mg PO DAILY PRN 10/08/23 10/08/23 levothyroxine 100 mcg tablet 100 mcg PO DAILY 10/08/23 10/08/23 multivitamin (Daily Multi-Vitamin 1 tab PO DAILY 10/08/23 10/08/23 tablet) vitamin B complex (Vitamins B 1 cap PO DAILY 10/08/23 10/08/23 Complex capsule) Allergies Allergy/AdvReac Type Severity Reaction Status Date / Time gluten Allergy Intermediate Verified 07/30/23 16:11 [facility] Medical History (Updated 10/08/23 @ 05:02 by Elkin Churchill MD) Benign bladder tumor ?D30.3 - Benign neoplasm of bladder (ICD-10) Pyelonephritis ?N12 - Tubulo-interstitial nephritis, not specified as acute or chronic (ICD- 10) Hypothyroid ?E03.9 - Hypothyroidism, unspecified (ICD-10) Surgical History (Updated 07/02/23 @ 19:46 by Brandy Doherty NP) S/P bladder tumor excision with fulguration ?Z98.890 - Other specified postprocedural states (ICD-10) Hx of cystoscopy ?Z98.890 - Other specified postprocedural states (ICD-10) Social History Smoking Status: Never smoker Do you use any of these nicotine containing products: None How often do you have a drink containing alcohol: never AUDIT-C Alcohol total score: 0 Non-prescribed substance use: denies use service: No Exam Narrative: Exam Narrative: General: Well-developed and well-nourished, no acute distress Head: Atraumatic and normocephalic Eyes: Pupils are equal reactive, extraocular motions intact, conjunctiva clear ENT: External nose and ears are normal, posterior pharynx without erythema or exudate Neck: No midline cervical tenderness, full spontaneous range of motion the neck, trachea midline, no adenopathy Heart: Regular rate and rhythm no murmurs or thrills Lungs: Clear to auscultation bilaterally without wheezes or crackles Abdomen: Soft, nontender, nondistended with active bowel sounds Musculoskeletal: No tenderness, deformity, or edema Neurologic: Awake, alert, and oriented x3, no gross focal neurologic deficits, cranial nerves intact as tested Psych: Mood and affect are appropriate Skin: No rashes Const: Vital Signs, click to edit/add: Vital Signs - 24 hr 10/08/23 02:24 Temperature 97.2 F L Pulse Rate [Left P ulse Oximeter] 84 Respiratory Rate 20 Blood Pressure [Le ft Upper Arm] 129/105 H Pulse Oximetry 97 Oxygen Delivery Me thod Room Air Course Course ED Course: Patient seen examined, prior records reviewed is available. Patient presents today with right-sided chest pain for about the past hour. She describes this as burning, also has some lightheadedness. This had similar symptoms recently and had negative emergency department evaluation for chest pain. Labs are ord ered, EKG is reassuring. Maalox given. Reevaluation(s) Time of Reevaluation #1: 03:15 Reevaluation #1: Labs ordered and independently interpreted by me with negative troponin, normal hepatic panel, normal basic panel, negative CRP, negative D-dimer, negative lipase. Repeat troponin will be performed anticipate discharge. Patient has not had significant improvement of her symptoms and complaints lot of dizziness when she turns her head. Zofran and meclizine ordered as well as GI cocktail Time of Reevaluation #2: 05:01 Reevaluation #2: Repeat troponin is negative, stable for discharge with outpatient follow-up Vital Signs Vital signs: Initial Vital Signs Temperature 97.2 F L 10/08/23 02:24 Temperature Source Temporal Artery Scan 10/08/23 02:24 Pulse Rate 84 10/08/23 02:24 Pulse Rhythm Regular 10/08/23 02:24 Respiratory Rate 20 10/08/23 02:24 Blood Pressure 129/105 H 10/08/23 02:24 Blood Pressure Mean 113 H 10/08/23 02:24 Blood Pressure Position Semi-Fowlers 10/08/23 02:24 Pulse Oximetry 97 10/08/23 02:24 Oxygen Delivery Method Room Air 10/08/23 02:24 Vital Signs Temperature 97.2 F L 10/08/23 02:24 Pulse Rate 84 10/08/23 02:24 Respiratory Rate 20 10/08/23 02:24 Blood Pressure 129/105 H 10/08/23 02:24 Pulse Oximetry 97 10/08/23 02:24 Oxygen Delivery Method Room Air 10/08/23 02:24 Temperature 97.2 F L 10/08/23 02:24 Pulse Rate 84 10/08/23 02:24 Respiratory Rate 20 10/08/23 02:24 Blood Pressure 129/105 H 10/08/23 02:24 Pulse Oximetry 97 10/08/23 02:24 Oxygen Delivery Method Room Air 10/08/23 02:24 Medications Administered Medications: Discontinued Medications Generic Name Dose Route Start Last Admin Trade Name Freq PRN Reason Stop Dose Admin Sodium Chloride 1,000 mls @ 1,000 mls/hr 10/08/23 02:45 10/08/23 03:03 0.9 % Sodium Chloride 1000 Ml IV 10/08/23 03:44 1,000 mls/hr .Q1H DEBBIE Administration Lidocaine/Aluminum/Magnesium/Simeth 30 ml 10/08/23 03:22 10/08/23 03:35 Gi Cocktail (Visc Lido/Antacid) 30 Ml PO 10/08/23 03:23 30 ml ONCE ONE Administration Meclizine HCl 25 mg 10/08/23 03:22 10/08/23 03:36 Meclizine Hcl 25 Mg Tablet PO 10/08/23 03:23 25 mg ONCE ONE Administration Ondansetron HCl 4 mg 10/08/23 03:22 10/08/23 03:36 Ondansetron 2 Mg/Ml Inj IVP 10/08/23 03:23 4 mg ONCE ONE Administration Medical Decision Making Lab Data Labs: Lab Results 10/08/23 10/08/23 10/08/23 Range/Units 02:27 02:27 02:27 WBC 8.78 (4.50-11.00) K/uL RBC 4.96 (4.00-5.20) m/uL Hgb 14.7 (12.0-16.0) gm/dL Hct 44.1 (33.0-51.0) % MCV 89 (80-100) fL MCH 30 (26-34) pg MCHC 33 (32-36) gm/dL RDW Coeff of Poornima 12.8 (11.5-15.5) % Plt Count 283 (140-440) K/uL Neut % (Auto) 39.5 L (42.0-72.0) % Lymph % (Auto) 48.1 H (20-44) % [place] % (Auto) 7.3 (0.0-11.0) % Eos % (Auto) 4.0 (0.0-7.0) % Baso % (Auto) 0.5 (0.0-3.0) % Neut # (Auto) 3.50 (1.7-7.0) K/uL Lymph # (Auto) 4.20 H (0.90-2.90) K/uL [place] # (Auto) 0.60 (0.00-0.90) K/UL Eos # (Auto) 0.35 (0.00-0.50) K/uL Baso # (Auto) 0.04 (0.00-0.30) K/uL Abs Immat Gran (auto) 0.05 (0.00-0.30) K/uL Imm/Tot Granulo (auto) 0.6 % D-Dimer Quant (PE/DVT) 0.36 (0.00-0.50) ug/ml Sodium 139 (135-149) mmol/L Potassium 3.5 L (3.6-5.1) mmol/L Chloride 104 (96-114) mmol/L Carbon Dioxide 28 (20-32) mmol/L Anion Gap 7 (7-15) mEq/L BUN 21 (7-30) mg/dL Creatinine 0.8 (0.5-1.5) mg/dL Estimated Creat Clear 70.23 Estimated GFR 88 ml/min Glucose 102 (60-115) mg/dL Calcium 9.7 (8.4-10.6) mg/dL Magnesium 2.0 (1.5-2.6) mg/dL Total Bilirubin 0.6 0.6 (0.1-1.5) mg/dL Direct Bilirubin 0.1 0.1 (0.0-0.5) mg/dL AST 36 H (12-35) U/L ALT (4-35) U/L Alkaline Phosphatase (40-150) U/L C-Reactive Protein (0.5-1.0) mg/dL NT-Pro-B Natriuret Pep pg/mL Total Protein (6.0-8.3) g/dL Albumin (3.3-5.0) g/dL Lipase (23-300) U/L POC Troponin I (0.01-0.04) ng/ml 10/08/23 10/08/23 10/08/23 Range/Units 02:27 02:27 02:27 WBC (4.50-11.00) K/uL RBC (4.00-5.20) m/uL Hgb (12.0-16.0) gm/dL Hct (33.0-51.0) % MCV (80-100) fL MCH (26-34) pg MCHC (32-36) gm/dL RDW Coeff of Poornima (11.5-15.5) % Plt Count (140-440) K/uL Neut % (Auto) (42.0-72.0) % Lymph % (Auto) (20-44) % [place] % (Auto) (0.0-11.0) % Eos % (Auto) (0.0-7.0) % Baso % (Auto) (0.0-3.0) % Neut # (Auto) (1.7-7.0) K/uL Lymph # (Auto) (0.90-2.90) K/uL [place] # (Auto) (0.00-0.90) K/UL Eos # (Auto) (0.00-0.50) K/uL Baso # (Auto) (0.00-0.30) K/uL Abs Immat Gran (auto) (0.00-0.30) K/uL Imm/Tot Granulo (auto) % D-Dimer Quant (PE/DVT) (0.00-0.50) ug/ml Sodium (135-149) mmol/L Potassium (3.6-5.1) mmol/L Chloride (96-114) mmol/L Carbon Dioxide (20-32) mmol/L Anion Gap (7-15) mEq/L BUN (7-30) mg/dL Creatinine (0.5-1.5) mg/dL Estimated Creat Clear Estimated GFR ml/min Glucose (60-115) mg/dL Calcium (8.4-10.6) mg/dL Magnesium (1.5-2.6) mg/dL Total Bilirubin (0.1-1.5) mg/dL Direct Bilirubin (0.0-0.5) mg/dL AST 36 H (12-35) U/L ALT 36 H 35 (4-35) U/L Alkaline Phosphatase 99 101 (40-150) U/L C-Reactive Protein < 0.5 L (0.5-1.0) mg/dL NT-Pro-B Natriuret Pep < 20 pg/mL Total Protein 8.0 (6.0-8.3) g/dL Albumin (3.3-5.0) g/dL Lipase (23-300) U/L POC Troponin I (0.01-0.04) ng/ml 10/08/23 10/08/23 10/08/23 Range/Units 02:27 02:27 02:27 WBC (4.50-11.00) K/uL RBC (4.00-5.20) m/uL Hgb (12.0-16.0) gm/dL Hct (33.0-51.0) % MCV (80-100) fL MCH (26-34) pg MCHC (32-36) gm/dL RDW Coeff of Poornima (11.5-15.5) % Plt Count (140-440) K/uL Neut % (Auto) (42.0-72.0) % Lymph % (Auto) (20-44) % [place] % (Auto) (0.0-11.0) % Eos % (Auto) (0.0-7.0) % Baso % (Auto) (0.0-3.0) % Neut # (Auto) (1.7-7.0) K/uL Lymph # (Auto) (0.90-2.90) K/uL [place] # (Auto) (0.00-0.90) K/UL Eos # (Auto) (0.00-0.50) K/uL Baso # (Auto) (0.00-0.30) K/uL Abs Immat Gran (auto) (0.00-0.30) K/uL Imm/Tot Granulo (auto) % D-Dimer Quant (PE/DVT) (0.00-0.50) ug/ml Sodium (135-149) mmol/L Potassium (3.6-5.1) mmol/L Chloride (96-114) mmol/L Carbon Dioxide (20-32) mmol/L Anion Gap (7-15) mEq/L BUN (7-30) mg/dL Creatinine (0.5-1.5) mg/dL Estimated Creat Clear Estimated GFR ml/min Glucose (60-115) mg/dL Calcium (8.4-10.6) mg/dL Magnesium (1.5-2.6) mg/dL Total Bilirubin (0.1-1.5) mg/dL Direct Bilirubin (0.0-0.5) mg/dL AST (12-35) U/L ALT (4-35) U/L Alkaline Phosphatase (40-150) U/L C-Reactive Protein (0.5-1.0) mg/dL NT-Pro-B Natriuret Pep pg/mL Total Protein 8.0 (6.0-8.3) g/dL Albumin 4.7 4.7 (3.3-5.0) g/dL Lipase 130 131 (23-300) U/L POC Troponin I 0.00 L (0.01-0.04) ng/ml ECG Data Attestation: I personally reviewed and interpreted this ECG as follows: Prior ECG tracings: available for review Interpretation: Performed at 2:24 a.m. demonstrates sinus rhythm with occasional PVCs, no acute ST elevations or depressions, normal intervals, normal axis, QTC 483, IA 174 Discharge Plan Discharge Clinical Impression: Atypical chest pain Patient Disposition: Home, Self-Care Condition: Stable Instructions: Noncardiac Chest Pain (ED) Additional Instructions: Follow-up with your primary care provider for consideration for further evaluation including possible stress test or EGD. Also consider HIDA scan to further evaluate the gallbladder Activity Level: No Restrictions Prescriptions: No Action levothyroxine 100 mcg tablet 100 mcg PO DAILY famotidine [Pepcid AC] 10 mg tablet 10 mg PO DAILY PRN aspirin 81 mg capsule 81 mg PO DAILY cholecalciferol (vitamin D3) .ROUTE multivitamin [Daily Multi-Vitamin] Tablet 1 tab PO DAILY vitamin B complex [Vitamins B Complex] Capsule 1 cap PO DAILY levothyroxine 112 mcg tablet Follow Up/Referrals: Yvette Leong MD [Staff Physician] - Stand Alone Forms: [employer] Info Instructions
[2023-10-08 02:24] VITALS: BP 129/105; PULSE 84; RESP 20; TEMP 36.2; O2SAT 97; BMI 30.9
[2023-10-08 02:34] VITALS: BP 107/62; PULSE 85; RESP 12; O2SAT 94
--- NOTE | 2023-10-08 02:35 | XR_ITS ---
Patient: DEEPA MASON Facility:?[facility] Patient ID:?[id number] Site Patient ID:?[id number]. Site :?[id number] Study:?XRay-Chest PORTABLE-10/08/2023 2:50:24 AM Ordering Physician:SAILAJA Final Report: INDICATION: Chest pain TECHNIQUE: Chest radiograph 1 view COMPARISON: 01/27/2022 FINDINGS: The sensitivity and specificity of the exam are moderately limited by the patient`s body habitus. Mediastinum: The mediastinum is normal in appearance. The heart silhouette is normal in size and morphology. Lung: Both lungs are unremarkable in appearance with small lung volumes. No sign of pleural effusion seen. No pneumothorax is identified. Bone and Soft tissue: Unremarkable for age. IMPRESSION: 1. No acute cardiopulmonary disease is seen. Dictated by: Navin García MD @ 10/08/2023 02:53:14 Signed by:?Navin García MD @10/08/2023 2:53:14 AM (Electronic Signature)
[2023-10-08 02:50] LABS: Albumin* 4.7 g/dL (3.3-5.0)
[2023-10-08 02:51] LABS: Chloride* 104 mmol/L (96-114); Potassium* 3.5 mmol/L (3.6-5.1); Sodium* 139 mmol/L (135-149)
[2023-10-08 02:52] LABS: Albumin* 4.7 g/dL (3.3-5.0)
[2023-10-08 02:53] LABS: Alkaline Phosphatase* 99 U/L (40-150); Anion Gap 7 mEq/L (7-15); Aspartate Amino Transferase* 36 U/L (12-35); Bilirubin Direct* 0.1 mg/dL (0.0-0.5); Bilirubin Total* 0.6 mg/dL (0.1-1.5); Blood Urea Nitrogen* 21 mg/dL (7-30); Carbon Dioxide* 28 mmol/L (20-32); Creatinine* 0.8 mg/dL (0.5-1.5); D Dimer Quantitative* 0.36 ug/ml (0.00-0.50); Est. Creatinine Clearance* 70.23; Estimated Glomerular Filt Rate 88 ml/min
[2023-10-08 02:54] LABS: Alanine Aminotransferase* 36 U/L (4-35); Aspartate Amino Transferase* 36 U/L (12-35); Bilirubin Direct* 0.1 mg/dL (0.0-0.5); Bilirubin Total* 0.6 mg/dL (0.1-1.5); Calcium* 9.7 mg/dL (8.4-10.6); Glucose* 102 mg/dL (60-115); Lipase* 130 U/L (23-300)
[2023-10-08 02:55] LABS: Alanine Aminotransferase* 35 U/L (4-35); Alkaline Phosphatase* 101 U/L (40-150); Lipase* 131 U/L (23-300)
--- OUTSIDE RECORDS SUMMARY | 2023-10-08 02:55 | XMS_ITS | Clinical Summary ---
Author Name Unknown Organization [facility] Address [address] [place] [address] Care Team Providers Care Lacquer Shader Name Role Phone Hillary Dawson MD Primary Care Provider [phone] Source Comments You are receiving this document as you are listed as the primary care provider,follow-up provider, or the patient has been referred to you for consultation.This is in compliance with the Medicare and[facility] EHR Incentive Program,which states Providers who transition their patient to another setting of careor provider of care or refers their patient to another provider of care shouldprovide summary care record for each transition of care or referral. [facility] Allergies No known active allergies Medications Medication [...] Flu Vac Preserv Free (3+yrs) 04/14/2013,03/29/20 09,04/14/2007 [id number] 04/12/2009 Influenza IIV4 (Quadrivalent ) 0.5mL (84199) 03/19/2020,03/17/2019,03/16/2018,2016,06/06/2015 Influenza, Unspecified Formulation 03/16,04/16/2015,04/07/2014,2008,04/14/2007 MMR 01/30/2006 [...] C Screening (Preventive Services) 1970 HepB (1) 1989 Adult Preventive Visit 08/03/2019 08/03/2018 Zoster/Shingles (1 [...] WEI W CAD Routine 07/05/2020 10:02 AM TAP GRINDER Screening breast examination HIV 1/2 AG/AB 4TH GEN Routine 06/05/2020 7:36 AM TAP GRINDER Screening for HIV (human immunodeficiency virus) LIPID PANEL & DIRECT LDL (IF NEEDED) Routine 06/05/2020 7:36 AM TAP GRINDER Hyperlipidemia, unspecified hyperlipidemia type ANATOMICAL PATH LIQUID BASED Routine 08/03/2018 10:09 AM TAP GRINDER from Last 3 Months or Most Recently Relevant to Health Maintenance Results * (ABNORMAL) MM Mammogram Screening Bilat W 3D Ewi W CAD (07/05/2020 10:02 AM TAP GRINDER) Anatomical Region Laterality Modality Breast Bilateral Mammography Impressions 07/05/2020 10:49 AM TAP GRINDER : ACR BI-RADS Category 0: Need Additional Imaging Evaluation RECOMMENDATION: Spot Tomosynthesis The results and recommendations of this examination will be communicated to the patient and the imaging center will attempt to schedule any recommended follow up with the patient. Narrative 07/05/2020 10:49 AM TAP GRINDER MM MAMMOGRAM SCREENING BILAT W 3D WEI [...] 1/2 Ag/Ab 4th Generation (06/05/2020 7:36 AM TAP GRINDER) HIV 1/2 Antigen/Antib richard (4th generation) Negative (Non Reactive) Negative (Non Reactive) 06/05/2020 2:00 PM T[facility] GR[facility]ER [facility] Comment:HIV-1 p24 Antigen an d HIV-1/HIV-2 Antibody not detected Blood Venipuncture / Unknown 06/05/2020 7:36 AM TAP GRINDER 06/05/2020 7:36 AM TAP GR[facility]ER Hillary Dawson MD LAB_1 Performing Organization Address [facility] Co de Phone Number [facility] [address] * (ABNORMAL) Lipid Panel - LDLD If Trig High (06/05/2020 7:36 AM TAP GRINDER) Cholesterol 265(H) 0 - 199 mg/dL 06/05/2020 9:58 AM [facility] Triglyceride 225(H) <=149 mg/dL 06/05/2020 9:58 AM [facility] HDL Cholesterol 53 >=40 mg/dL 0 9:58 AM [facility] LDL, Calculated 167(H) <130 mg/dL 0 9:58 AM [facility] Non HDL Chol, Calculated 212 mg/dL 06/05/2020 9:58 AM [facility] Cholesterol/HDL Ratio 5.0 06/05/2020 9:58 AM [facility] Hours Fasting 12 06/05/2020 9:58 AM [facility] Blood Venipuncture / Unknown 06/05/2020 7:36 AM [facility]ER 06/05/2020 7:36 AM [facility] Hillary Dawson MD LAB_1 Performing Organization Address City/[facility]/ZIP Co de Phone Number [facility] [address] [place] [address], [facility] [phone] * Pap Smear (08/03/2018 10:09 AM TAP GRINDER) 08/03/2018 10:0 9 AM TAP GRINDER Narrative CONOR RODRIGUEZ - 08/24/2018 4:12 PM CDT FINAL GYNECOLOGICAL CYTOLOGY REPORT Pathology #: [id number] ?Date Obtained: 08/03/2018 ? Date Received: 08/04/2018 [...] and false-negative reports may occur. Performed at [address] [address] Hillary Dawson MD LAB_1 Performing Organization Address [facility] de Phone Number CONOR RODRIGUEZ [address] [place] [address] from Last 3 Months or Most Recently Relevant to Health Maintenance Advance Directives * Full Code (Latest Code Status on File) Date Activated Date Inactivated Comments 12/25/2015 9:01 AM 12/25/2015 1:55 PM Care Teams Lacquer Shader Relationship Specialty [place] [address] [address] [address] PCP - General 08/01/15
--- OUTSIDE RECORDS SUMMARY | 2023-10-08 02:55 | XMS_ITS | Data Portability ---
Author Name Unknown Address [address] [place] [address] Phone [phone] Organization [facility] Address [address] [place] [address] Care Team Providers Care Engineer System Administrator Name Role Phone JAKFLYNN BAEZ Referring Provider EVARISTO TREVIÑO Primary Care Provider Assessment No assessment recorded. Plan of Treatment Reminders Order Date Submit Date Provider Last Modified By Organization Details Last Modified Time Details Appointments ESTABLISH ED 15 2023 03:10P Judy Cruz MD Not available Not available Not available Lab None recorded. Referral None recorded. Procedures None recorded. Surgeries transuret hral resection of bladder tumor (SURG) 2021 [email or web address] 9 [facility], [address] [place] [address], [id number], 04/25/2022 10:37:45 Imaging US, renal - PLEASE CONTACT PATIENT TO SCHEDULE microscop ic hematuria 2021 [email or web address] [facility], [address] [place] [address], [id number], 04/07/2022 09:27:08 Medication Orders Bactrim DS 800 mg-160 mg tablet [address] [facility] [address] [facility] [employer], [facility] [address], [address], 10/01/2022 16:11:36 Patient TargetsNo targets recorded. Patient Instructions Encounter Date Encounter Id Patient Instructions Last Modified By Organization Details Last Modified Time 10/01/2022 [id number] Bladder was norm al on cystoscopy today. Will do one more surveillance cystoscopy in 1 year. 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 Will repeat a cystoscopy in 6 months. Dysuria: Possible UTI. Will start Bactrim x 3 days. Not available 04/04/2022 15:49:18 03/13/2022 [id number] Bladder lesion/microscopic hematuria: Bladder lesion on the [...] bladder Active 03/12/20 22 Jhonny Cruz MD [address] [place] [address],[address] [place] [address], [phone], [facility] 03/12/2022 22:04:26 Microscopic hematuria Active 03/13/20 22 Jhonny Cruz MD [address] [place] [address],[address], [address], [facility] 03/13/2022 14:21:20 Problem Notes None recorded. Procedures Surgical History Date Name Laterality Status Provider Name and Address Organization Details Recorded Time 3 Cystoscopy- female completed Jhonny Cruz MD [address] [place] [address],[address], [place], [address], [facility] 10/01/2022 16:21:10 Cystoscopy- female completed Jhonny Cruz MD [address] [facility],[address], [place], [address], [facility] 03/13/2022 14:20:33 Cystoscopy completed Not Available [...] Address Organization Details Last Updated DateTime 03/13/2022 44809.53659 34127 g 160.02 cm 32.8 kg/m2 Not Available Health Note 03/13/2022 13:32:44 Date Recorded Body height Body mass index (BMI) Body weight Provider Name and Address Organization Details Last Updated DateTime 10/01/2022 160.02 cm 33.7 kg/m2 45772.55 g [facility] 10/01/2022 16:10:43 Social History Question Answer [...] Use Any Illicit Or Recreational Drugs? No [facility]-685 Information not available 03/31/2022 Has Tobacco Cessation [...] of cardiac disorder Medical History Condition Response High Blood Pressure N Kidney Stones N Depression N Lung Disease N GERD/Acid Reflux N Sexually Transmitted Infection N Diabetes N Bleeding Disorder N Cancer N High Cholesterol N Heart Disease N Gynecological History Statement/Question [...] [facility] 04/04/2022 15:32:54 [facility]MR 01/30/2006 [facility] 03/13/2022 13:50:59 influenza, injectable, quadrivalent, preservative free 03/17/2019 [facility] 03/13/2022 13:50:59 influenza, unspecified formulation 03/29/2009 [facility] 03/13/2022 13:50:59 COVID-19, mRNA, LNP-S, PF, 30 mcg/0.3 mL dose 07/11/2020 [facility] 03/13/2022 13:50:59 influenza, injectable, quadrivalent, preservative free 03/16/2017 [facility] 03/13/2022 13:50:59 influenza, injectable, quadrivalent, preservative free 03/19/2020 completed Lyudmila gary [facility] 03/13/2022 13:50:59 influenza, injectable, quadrivalent, preservative free 03/16/2018 completed Lyudmila gary [facility] 03/13/2022 13:50:59 COVID-19, mRNA, LNP-S, PF, 30 mcg/0.3 mL dose 03/26/2021 [facility]/13/2022 13:50:59 Tdap 01/30/2006 [facility] 03/13/2022 13:50:59 influenza, injectable, quadrivalent, preservative free 03/18/2021 completed Lyudmila gary, [facility] 03/13/2022 13:50:59 Novel [id number]-[id number], all formulations 04/12/2009 [facility] 03/13/2022 13:50:59 influenza, unspecified formulation 04/14/2007 [facility] 03/13/2022 13:50:59 influenza, unspecified formulation 04/07/2014 [facility] 03/13/2022 13:50:59 Td (adult), 2 Lf tetanus toxoid, preservative free, adsorbed 08/07/2015 [facility] 03/13/2022 13:50:59 influenza, unspecified formulation 04/16/2015 [facility] 03/13/2022 13:50:59 Influenza, seasonal, injectable, preservative free 04/14/2013 [facility] 03/13/2022 13:50:59 COVID-19, mRNA, LNP-S, PF, 30 mcg/0.3 mL dose 06/20/2020 [facility] 03/13/2022 13:50:59 influenza, injectable, quadrivalent, preservative free 06/06/2015 [facility] 03/13/2022 13:50:59 SARS-COV-2 (COVID-19) vaccine, UNSPECIFIED 04/14/2021 completed Not Available [facility] 04/04/2022 15:32:54 Past Encounters Encounter ID Performer Location Encounter Start Date Encounter Closed Date Diagnosis/Indication Diagnosis SNOMED-CT Code [id number] Jhonny Cruz MD [facility] [address] [place] [phone] 03/13/2022 13:31:44 03/13/2022 16:11:28 Neoplasm of bladder [id number] Microscopic hematuria 19 [id number] Jhonny Cruz MD [facility] [address] [place] [phone] 04/04/2022 15:32:01 04/04/2022 16:08:16 Neoplasm of bladder 821270882 Dysuria [id number] Jhonny Cruz MD [address] [address] 10/01/2022 15:59:46 10/01/2022 16:29:04 Neoplasm of bladder [id number] Health Concerns Section Related Observation LastModified by Organization Detai ls LastModified Time None Recorded Concern Status LastModified by Organization Details LastModified Time None Recorded Advance Directives Directive None Recorded Payers Encounter Date Sequence Insurance Name Policy Number Policy Patel Covered Member ID Patel Member ID Guarantor Name 10/01/2022 [place] [id number] Kelley Carson [id number] Kelley Carson 04/04/2022 1 [place] [id number] Kellye Carson [id number] Kelley Carson 03/13/2022 1 [place] [id number] Kelley Carson [id number] Kelley Carson Notes Date Note Type Note [...] RBC/hpf, 0-2 WBC/hpf. Saw Dr. Flynn Kendall (DIRECTOR STRATEGIC PLANNING) 02/12/22 for microscopic hematuria work up -> [...] hematuria. 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 Saw Dr. Flynn Kendall (DIRECTOR [employer]ANNING) 02/12/22 for microscopic hematuria work up -> [...] fevers. 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 Saw Dr. Flynn Kendall (DIRECTOR [employer]ANNING) 02/12/22 for microscopic hematuria work up -> [...] surgeries. 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
--- OUTSIDE RECORDS SUMMARY | 2023-10-08 02:55 | XMS_ITS | Clinical Summary ---
Author Name Unknown Organization [facility] Address [place], [place] [address] Care Team Providers Care Skinning Machine Feeder Name Role Phone Neil Carlos MD Unavailable Veronika Perez RN Unavailable Unavailab Yvette David MD Primary Care Provider Allergies No known active allergies Medications Medication Sig Dispensed Refills Start Date End Date Status MULTIVITAMIN TAB take 1 tablet by oral route once daily with food Active cholecalciferol (VITAMIN D3) 1,000 unit tablet Take 1 tablet. by mouth. 0 Active ascorbic acid, vitamin C, (VITAMIN C) 1,000 mg tablet Take 1,000 mg by mouth once daily. Active EPINEPHrine (EPIPEN) 0.3 mg/0.3 mL injectionIndications :Anaphylactic reaction to bee sting, accidental or unintentional, sequela Inject 0.3 mg intramuscular one time if needed for Allergic Reaction. 2 Each 1 2 Active clindamycin (CLEOCIN) 150 mg capsuleIndications:A ftercare following surgery of the musculoskeletal system Take 2 capsules (300 mg) ONE hour prior to appointment, THEN take 1 capsule (150 mg) SIX hours after first dose. 3 Capsule 3 2 Active COVID-19 antigen test (Flowflex COVID-19 Ag Home Test) kit USE DIRECTED ON PACKAGING. 4 Kit 3 Active COVID-19 antigen test (Flowflex COVID-19 Ag Home Test) kit Use as directed on packaging. 4 Kit 4 Active levothyroxine (SYNTHROID) 100 mcg tabletIndications:Ac quired hypothyroidism Take 1 Tablet (100 mcg) by mouth before breakfast. 90 Tablet 3 4 Active ondansetron (ZOFRAN ODT) 4 mg disintegrating tabletIndications:Sy ncope and collapse Place 1 Tablet (4 mg) on the tongue every 8 hours if needed for Nausea/Vomiting. 8 Tablet 4 Active COVID-19 antigen test (Flowflex COVID-19 Ag Home Test) kit use as directed on packaging 4 Kit 2 09/18/19 24 Discontinu ed(*Med complete/R egimen complete/L evel of care change) Active Problems Problem Noted Date Diagnosed Date [...] Primary osteoarthritis of right hip 07/30/2020 11/27/2020 Encounters Date Type Department Care Team Description 09/29/2023 4:22 PM CDT - 09/29/2023 5:47 PM CDT Emergency [facility] [address] [place] [address] Michelle Malloy MD Syncope and collapse (Primary Dx) Discharge Disposition: Home Self Care 09/29/2023 Travel 09/21/2023 Orders Only [facility] [address] [place] [address] Grace Conde PA 1 scan: (1-Ord) NFLD-EKG-09/18/23 09/18/2023 7:25 AM CDT Office Visit [facility] [address] [place] [address] Grace Conde PA Palpitations (2 weeks- better now then before- stopping drinking caffeine. unsure if its from thyroid or not. ) 09/18/2023 Travel 09/10/2023 7:30 AM CDT Ancillary Procedure [facility] [address] [place] [address] 09/09/2023 1:00 PM CDT Ancillary Procedure [facility] [address] [place] [address] 09/09/2023 Travel 08/19/2023 9:30 AM NUMERICAL CONTROL OPERATOR Office Visit [facility] [address] [place] [address] Grace Conde PA Medication Management (Levothyroxine refills ) 08/19/2023 Travel 08/05/2023 Orders Only [facility] Scanner 1 scan: (1-Ord) INCOMING RECORDS-CT, [facility], 08/05/2023 08/04/2023 9:30 AM NUMERICAL CONTROL OPERATOR Office Visit [facility] [address] [place] [address] Grace Conde PA Abdominal Pain (follow up- gotten better, but still struggling- pulling down feeling/CT was done but never got results. ) 08/04/2023 Orders Only [facility] Scanner 1 scan: (1-Ord) INCOMING RECORDS-CT, [facility], 08/04/2023 08/04/2023 Travel 07/30/2023 Orders Only [facility] Scanner 1 scan: (1-Ord) [place], ABDOMEN/PELVIS W/ISOVUE, 07/30/2023 from Last 3 Months Immunizations Name Administration Dates Next Due COVID-19 vaccine ([employer] 30mcg/0.3mL) ANDREW ROUSE 07/11/2020,06/20/2020 07/11/2020 Covid-19 Vaccine (Unspecified) 04/13/2021 Influenza A (H1N1), Inactivated 04/12/2009 Influenza Virus, Unspecified 03/16/2017, 04/16/2015,04/07/2014,03/29,03/29/2009,04/14/2007,04/14/2007 Influenza, IIV3 (Age 6-35 mos) 04/14/2013 Influenza, IIV4 05/14/2022,,03/19/2020,03/17,03/16/2018,03/16/2017,06/06/2015 MMR 01/30/2006 Td (Age >=7 Years) 08/07/2015 [...] of Communication with Friends and Fami ly 0 09/18/2023 Financial Resource Strain Answer Date R ecorded Difficulty of Paying Living Expenses 3 09/18/2023 Difficulty of Paying Living Expenses Not on file 09/18/2023 Food Insecurity Answer Date Recorded Worried About Running Out of Food in the Last Ye ar 1 09/18/2023 Transportation Needs Answer Date Record ed Lack of Transportation (Medical) 1 09/18/2023 Housing Stability Answer Date Recorded Unable to Pay for Housing in the Last Year 1 09/18/2023 Sex and Gender Information Value Date Recorded [...] PTL Kami A1 A5 Name Cl in 2000 Term F Vag Connie ng 2002 Term F Vag Connie ng Term M Vag Connie ng Last Filed Vital Signs Vital Sign Reading Time Taken Comments Blood Pressure 134/60 09/29/2023 3:23 PM CDT Pulse 63 09/29/2023 3:23 PM CDT Temperature 36.6 ??C (97.8 ??F) 09/29/2023 3:23 PM CD T Respiratory Rate 18 09/29/2023 3:23 PM CDT Oxygen Saturation 98% 09/29/2023 3:23 PM CDT Inhaled Oxygen Concentration - - Weight 82.6 kg (182 lb) 09/29/2023 3:23 PM CDT Height 162.6 cm (5' 4) 09/29/2023 3:23 PM CDT Body Mass Index 31.24 09/29/2023 3:23 PM CDT Plan of Treatment Upcoming Encounters Date Type Department Care Team (Late st Contact Info) Description 11/18/2023 10:40 AM CDT Office Visit [facility] [address] [facility] [address] [place] [phone] Laura Rowland MD [address] [facility] [address] [place], [place] [id number] 12/04/2023 1:00 PM CDT Appointment [facility] [address] [place], [place] [id number] Health Maintenance Due Date Last Done Comments HIV for age 15-65 1985 Hepatitis C screening for age 18-79 1988 Zoster (shingles) series for age 50+ (1 of 2) 2020 Depression screening for age 12+ 10/03/2022 10/03/2021, 10/11/2020 COVID-19 vaccine series (2022- season) 2023 04/13/2021, 07/11/2020, 06/20/2020 BMI (ht and wt on same day) for age 18+ 03/26/2023 03/26/2022, 10/03/2021, 10/11/2020, Additional history exists Pap test for age 21-65 08/03/2023 9 (Verified in Care Everywhere or Patient Record) Mammogram for age 45-75 12/02/2023 12/02/19, 11/26/2021, 07/10/2020, Additional history exists Influenza for age 50-64 02/14/2024 05/14/20 22, 03/18/2021, 03/19/2020, Additional history exists Tetanus booster 08/07/2025 08/07/2015, 01/30/2006 Lipids for age 45-75 08/20/2027 08/19/2022, 10/03/2021, 06/05/2020 (Verified in Care Everywhere or Patient Record), Additional history exists Colonoscopy through age 75 10/29/202710/28, 10/02/2017, 10/02/2017 ([facility]) Tdap Completed 01/30/2006 Pneumococcal series for age 6-64 Aged Out No longer eligible based on patient's age to complete this topic Medical Devices Implanted Type Area Competitive Intelligence Analyst Device Identifier Shelf Expiration Date Model / Serial / Lot Shell Hip Od46mm 3 Hole R3 Pe - [id number] Implanted:Qty: 1 on 11/15/2020 by Phil Miller MD at [facility] Right: Hip [employer] 08/21/2030 [id number] / / [id number] Screw Hip 6.5x30mm Reflection Reconstrt - [id number] Implanted:Qty: 1 on 11/15/2020 by Phil Miller MD at [facility] Right: Hip [employer] 08/19/2030 [id number] / / [id number] Liner Hip Id28 Od46mm 20 Deg R3 Xlpe - [id number] Implanted:Qty: 1 on 11/15/2020 by Phil Miller MD at [facility] Right: Hip [employer] 08/14/2030 [id number] / / [id number] Stem Hip Sz 4 Anthology Std Offpors - [id number] Implanted:Qty: 1 on 11/15/2020 by Phil Miller MD at [facility] Right: Hip [employer] 01/28/2029 [id number] / / [id number] Head Hip Od28mm +0 05/28 Oxinium Oxin - [id number] Implanted:Qty: 1 on 11/15/2020 by Phil Miller MD at [facility] Right: Hip [employer] 08/08/2030 [id number] / / [id number] Procedures Procedure Name Priority Date/Time Associated Diagnosis Comments BEDSIDE US STUDY ARCHIVE Routine 09/29/2023 4:26 PM CDT HEPATIC FUNCTION PANEL MICKI 3:57 PM CDT TSH MICKI 09/29/2023 3:57 PM CDT CBC WITH AUTO DIFFERENTIAL STAT 09/29/2023 3:57 PM CDT PRO-BNP STAT 09/29/2023 3:57 PM CDT TROPONIN T (HS) ONE TIME STAT 09/29/2023 3:57 PM CDT BASIC METABOLIC PANEL STAT 09/29/2023 3:57 PM CDT D-DIMER,QUANTITATIVE STAT 09/29/2023 3:57 PM CDT CBC WITH AUTO DIFFERENTIAL STAT 09/29/2023 3:57 PM CDT EKG 12 LEAD STAT 09/29/2023 3:29 PM CDT EKG 12 LEAD Routine 09/21/2023 3:05 PM CDT Heart palpitations [place] READING EKG - NO CHARGE, COMP ONLY Routine 09/21/2023 3:02 PM CDT Heart palpitations US ABDOMEN LIMITED LIVER Routine 09/10/2023 7:58 AM CDT Hypodense mass of liver US PELVIS COMPLETE TA AND TV Routine 09/09/2023 1:42 PM CDT Abdominal pain, LLQ (left lower quadrant) TSH Routine 08/19/2023 10:06 AM NUMERICAL CONTROL OPERATOR Acquired hypothyroidism SCAN CORRESP-IMAGING 08/05/2023 12:00 AM NUMERICAL CONTROL OPERATOR SCAN CORRESP-IMAGING 08/04/2023 12:00 AM NUMERICAL CONTROL OPERATOR SCAN-CT INTERPRETATION 12:00 AM NUMERICAL CONTROL OPERATOR XR MAMMO MARILU BILAT SCREEN Routine 12/01/2022 1:10 PM CDT Encounter for screening mammogram for malignant neoplasm of breast SCAN-COLONOSCOPY 10/28/2022 12:0 0 AM CDT LC LIPID PANEL AND CHOL/HDL RATIO Today 08/19/2022 7:41 AM NUMERICAL CONTROL OPERATOR Hypercholesterolemia from Last 3 Months or Most Recently Relevant to Health Maintenance Results * TROPONIN T ONE TIME (09/29/2023 3:57 PM CDT) TROPONIN T HS <6 6-10 ng/L ng/L 09/29/2023 4:51 PM CDT [facility] Blood BLOOD SPECIMEN / Unknown Non-Lab Venipuncture / Unknown 09/29/2023 3:57 PM CDT 09/29/2023 4:09 PM CDT Narrative [facility] - 09/29/2023 4:51 PM CDT hs-cTnT (Elecsys Troponin T Gen 5) concentration (s) above the sex-specific 99th percentile (16 ng/L or greater for males or 11 ng/L or greater for females) are indicative of myocardial injury. If initial hs-cTnT <=100 ng/L at presentation, a 0h/2h ABSOLUTE (ng/L) delta change (rising or falling) of >=10 ng/L suggests a significant change, whereas a 0h/2h delta change <=3 ng/L suggests no significant change. If initial hs-cTnT >100 ng/L at presentation, a 0h/2h/ RELATIVE (percent, %) delta change of 20% is suggested to distinguish patients with acute vs. chronic myocardial injury. There are multiple etiologies that can cause hs-cTnT increases above the 99th percentile (myocardial injury) other than acute myocardial infarction. Clinical context and careful clinical evaluation are critical for diagnosis and risk-stratification. The diagnosis of acute myocardial infarction requires a rising and/or falling pattern in hs-cTnT concentrations with at least one value above the sex-specific 99th percentile PLUS at least one of the following clinical criteria: ischemic symptoms, new or presumed new significant ST-T wave changes or new LBBB, development of pathological Q waves, imaging evidence of new loss of viable myocardium or new regional wall motion abnormality, or identification of intracoronary atherothrombosis or an acute angiographic culprit on coronary angiography. In appropriate low-risk patients with a non-ischemic electrocardiogram without active chest pain with a symptom onset >3-hours without recurrence, a single initial hs-cTnT<6 ng/L identifies patient with a very low risk in emergency department patient population. Jean Lilly DO CHEMISTRY [facility] SENDOUT INTERNAL [facility] [id number] [place] [address] * CBC WITH AUTO DIFFERENTIAL (09/29/2023 3:57 PM CDT) Pathologist [facility] WHITE BLOOD COUNT 7.2 4.5 - 11.0 thou/cu mm 09/29/2023 4:13 PM CDT [facility] RED BLOOD COUNT 5.12 4.00 - 5.20 mil/cu mm 09/29/2023 4:13 PM CDT [facility] HEMOGLOBIN 14.9 12.0 - 16.0 g/dL 09/29/2023 4:13 PM CDT [facility] HEMATOCRIT 45.7 33.0 - 51.0 % 09/29/2023 4:13 PM CDT [facility] MCV 89 80 - 100 fL 09/29/2023 4:13 PM CDT [facility] MCH 29.1 26.0 - 34.0 pg 09/29/2023 4:13 PM CDT [facility] MCHC 32.6 32.0 - 36.0 g/dL 09/29/2023 4:13 PM CDT [facility] RDW 12.9 11.5 - 15.5 % 09/29/2023 4:13 PM CDT [facility] PLATELET COUNT 288 140 - 440 thou/cu mm 09/29/2023 4:13 PM CDT [facility] MPV 9.7 6.5 - 11.0 fL 09/29/2023 4:13 PM CDT [facility] NRBC 0.0 % 09/29/2023 4:13 PM CDT [facility] ABS NRBC 0.0 thou /cu mm 09/29/2023 4:13 PM CDT [facility] % NEUT 66.2 % 09/29/2023 4:13 PM CDT [facility] % LYMPH 25.6 % 09/29/2023 4:13 PM CDT [facility] % MONO 4.6 % 09/29/2023 4:13 PM CDT [facility] % EOS 2.6 % 09/29/2023 4:13 PM CDT [facility] % BASO 0.7 % 09/29/2023 4:13 PM CDT [facility] % IMMATURE GRAN (METAS,MYELOS,TX OS) 0.3 % 09/29/2023 4:13 PM CDT [facility] ABSOLUTE NEUTROPHILS 4.8 1.7 - 7.0 thou/cu mm 09/29/2023 4:13 PM CDT [facility] ABSOLUTE LYMPHOCYTES 1.9 0.9 - 2.9 thou/cu mm 09/29/2023 4:13 PM CDT [facility] ABSOLUTE MONOCYTES 0.3 <0.9 thou/cu mm 09/29/2023 4:13 PM CDT [facility] ABSOLUTE EOSINOPHILS 0.2 <0.5 thou/cu mm 09/29/2023 4:13 PM CDT [facility] ABSOLUTE BASOPHILS 0.1 <0.3 thou/cu mm 09/29/2023 4:13 PM CDT [facility] ABSOLUTE IMMATURE GRANULOCYTES(MET ,MYELOS,PROS) 0.0 <0.3 thou/cu mm 09/29/2023 4:13 PM CDT [facility] Blood BLOOD SPECIMEN / Unknown Non-Lab Venipuncture / Unknown 09/29/2023 3:57 PM CDT 09/29/2023 4:09 PM CDT Jean Lilly DO HEMATOLOGY [facility] SENDOUT [place]NAL [address] [id number] [place] [address] * TSH (09/29/2023 3:57 PM CDT) Only the most recent of2 resultswithin the time period is included. Pathologist [facility] TSH 0.62 0.27 - 4.20 uIU/mL 09/29/2023 4:52 PM CDT [facility] Blood BLOOD SPECIMEN / Unknown Non-Lab Venipuncture / Unknown 09/29/2023 3:57 PM CDT 09/29/2023 4:09 PM CDT Narrative [facility] - 09/29/2023 4:52 PM CDT In Adults, TSH values between 5.00 and 10.00 uIU/ml do not necessarily indicate the presence of Hypothyroidism. Correlation with clinical findings such as presence of goiter and/or Thyroperoxidase (TPO) Antibody may be helpful. For more information please refer to KAYLEIGH 2004; 291: 228-238. Michelle Malloy MD CHEMISTRY Performing Organization Address [facility] Co de Phone Number [facility] SENDOUT [place]NAL [address] [phone] [place] [address] * D-Dimer Quantitative (09/29/2023 3:57 PM CDT) Pathologist [facility] D-DIMER,QUANTI TATIVE 0.50 See comment FEU mcg/mL 09/29/2023 4:24 PM CDT [facility] Blood BLOOD SPECIMEN / Unknown Non-Lab Venipuncture / Unknown 09/29/2023 3:57 PM CDT 09/29/2023 4:09 PM CDT Narrative [facility] - 09/29/2023 4:24 PM CDT The cut off value for exclusion of Deep Vein Thrombosis and / or Pulmonary Embolism is 0.50 FEU mcg/mL For patients greater than 50 years of age the upper limit is age dependent and was calculated with the formula: ?? (PATIENT AGE x 0.01) FEU mcg/mL = Upper limit of normal range Jean Lilly DO HEMATOLOGY Performing Organization Address [facility]/ZIP Co de Phone Number [facility] SENDOUT INTERNAL [address]IP [phone] [place] [address] * PRO-BNP (09/29/2023 3:57 PM CDT) PRO-BNP <36 <125 pg/mL 09/29/2023 4:51 PM CDT [facility] Blood BLOOD SPECIMEN / Unknown Non-Lab Venipuncture / Unknown 09/29/2023 3:57 PM CDT 09/29/2023 4:09 PM CDT Narrative [facility] - 09/29/2023 4:51 PM CDT The following cut-points have been suggested for the use of proBNP for the diagnostic evaluation of heart failure (HF) in patient with acute dyspnea. Patients with eGFR >= 60 Diagnosis (rule in CHF) ? <50 Years Old ?450 pg/mL 50 - 75 Years Old ?900 pg/mL >75 Years Old ? 1800 pg/mL Exclusion (rule out CHF) Age Independent ?300 pg/mL A cutoff of 1200 pg/mL for patients with an eGFR <60 yields a diagnostic sensitivity of 89% and specificity of 72% for acute congestive heart failure. ? Jean Lilly DO SEND OUTS [facility] SENDOUT INTERNAL [address]IP [phone] [place] [address] * (ABNORMAL) HEPATIC FUNCTION PANEL (09/29/2023 3:57 PM CDT) ALBUMIN 5.0(H) 4.0 - 4.9 g/dL 09/29/2023 5:03 PM CDT [facility] PROTEIN,TOTAL 8.0 6.0 - 8.0 g/dL 09/29/2023 5:03 PM CDT [facility] BILIRUBIN,TOTAL 0.5 0.0 - 1.2 mg/dL 09/29/2023 5:03 PM CDT [facility] BILIRUBIN,DIRECT <0.2 0.0 - 0.3 mg/dL 09/29/2023 5:03 PM CDT [facility] BILIRUBIN,INDIRE CT 09/29/2023 5:03 PM CDT [facility] Comment:Unable to calculate, Direct Bili <0.2 ALK PHOSPHATASE 101 35 - 104 IU/L 09/29/2023 5:03 PM CDT [facility] ALT (SGPT) 33 10 - 35 IU/L 09/29/2023 5:03 PM CDT [facility] AST (SGOT) 26 10 - 35 IU/L 09/29/2023 5:03 PM CDT [facility] Blood BLOOD SPECIMEN / Unknown Non-Lab Venipuncture / Unknown 09/29/2023 3:57 PM CDT 09/29/2023 4:09 PM CDT Michelle Malloy MD CHEMISTRY [facility] SENDOUT INTERNAL ZIP [phone] [place] [address] * (ABNORMAL) Basic Metabolic Panel (09/29/2023 3:57 PM CDT) SODIUM 141 136 - 145 mmol/L 09/29/2023 4:51 PM CDT [facility] POTASSIUM 3.9 3.5 - 5.1 mmol/L 09/29/2023 4:51 PM CDT [facility] CHLORIDE 103 98 - 107 mmol/L 09/29/2023 4:51 PM CDT [facility] CO2,TOTAL 27 22 - 29 mmol/L 09/29/2023 4:51 PM CDT [facility] ANION GAP 11 5 - 18 09/29/2023 4:51 PM CDT [facility] GLUCOSE 99 70 - 99 mg/dL 09/29/2023 4:51 PM CDT [facility] CALCIUM 10.2(H) 8.6 - 10.0 mg/dL 09/29/2023 4:51 PM CDT [facility] BUN 17 6 - 20 mg/dL 09/29/2023 4:51 PM CDT [facility] CREATININE 0.82 0.50 - 0.90 mg/dL 09/29/2023 4:51 PM CDT [facility] BUN/CREAT RATIO 21(H) 10 - 20 4:51 PM CDT [facility] eGFR 86(L) >90 mL/min/1.7 3m2 09/29/2023 4:51 PM CDT [facility] Comment:As of 2021, eG FR is calculated by the CKD-EPI creatinine equation without race adjustment. ??eGFR can be influenced by muscle mass, exercise, and diet. ??The reported eGFR is an estimation only and is only applicable if the renal function is stable. Blood BLOOD SPECIMEN / Unknown Non-Lab Venipuncture / Unknown 09/29/2023 3:57 PM CDT 09/29/2023 4:09 PM CDT Jean Lilly DO CHEMISTRY [facility] SENDOUT INTERNAL [address] [place] [address] * EKG 12 LEAD (09/29/2023 3:29 PM CDT) Only the most recent of2 resultswithin the time period is included. Interpretation Normal sinus rhythm Incomplete right bundle branch block Borderline ECG BEYOND NOW Ventricular Rate 63 BPM BEYOND NOW Atrial Rate 63 BPM BEYOND NOW P-R Interval 168 ms BEYOND NOW QRS Duration 102 ms BEYOND NOW QT 442 ms BEYOND NOW QTc 452 ms BEYOND NOW P [place] 46 degrees BEYOND NOW R [place] 8 degrees BEYOND NOW T [place] 26 degrees BEYOND NOW 09/29/2023 3:29 PM CDT 09/30/2023 12:10 PM CDT Michelle Malloy MD EKG ORD BEYOND NOW [place], [place] * [place] READING EKG - NO CHARGE, COMP ONLY (09/21/2023 3:02 PM CDT) Grace GARZA PB - PROVIDER PAOLA RUFFIN * US ABDOMEN LIMITED LIVER (09/10/2023 7:58 AM CDT) Anatomical Region Laterality Modality LIVER Ultrasound 09/11/2023 7:40 AM CDT Impressions 09/11/2023 7:40 AM CDT No discrete liver lesion is seen on the current study. Dictated by Priya Babb MD @ Sep 11 2023 ??7:40AM (Electronically Signed) ?? Narrative 09/11/2023 7:40 AM CDT CLINICAL HISTORY: Right liver lesion Comparison CT 03/03/2019 FINDINGS: The patient`s liver is of normal size and has uniform echogenicity. No discrete lesion is seen on the current ultrasound there is a normal appearance of the hepatic IVC and proximal abdominal aorta. There is no evidence of ascites. The gallbladder is of normal size and there is no evidence of intraluminal stones or sludge. ??The gallbladder wall measures 2 mm in thickness. ??The common bile duct is of normal size and measures 3 ??mm in diameter at the level of the fabian hepatis. ??The visualized portions of the pancreas appears normal. ??There is no evidence of a stone or hydronephrosis within the right kidney. ??The right kidney measures 10 cm in length. Right renal cyst measuring 2.5 centimeters. Procedure Note Priya Babb MD - 09/11/2023 CLINICAL HISTORY: Right liver lesion Comparison CT 03/03/2019 FINDINGS: The patient`s liver is of normal size and has uniform echogenicity. Nodiscrete lesion is seen on the current ultrasound there is a normalappearance of the hepatic IVC and proximal abdominal aorta. There is noevidence of ascites. The gallbladder is of normal size and there is noevidence of intraluminal stones or sludge. The gallbladder wall measures2 mm in thickness. The common bile duct is of normal size and measures 3mm in diameter at the level of the fabian hepatis. The visualized portionsof the pancreas appears normal. There is no evidence of a stone orhydronephrosis within the right kidney. The right kidney measures 10 cmin length. Right renal cyst measuring 2.5 centimeters. IMPRESSION: No discrete liver lesion is seen on the current study. Dictated by Priya Babb MD @ Sep 11 2023 7:40AM (Electronically Signed) Grace GARZA US * US PELVIS COMPLETE TA AND TV (09/09/2023 1:42 PM CDT) Anatomical Region Laterality Modality Pelvis Ultrasound 09/10/2023 9:56 AM CDT Impressions 09/10/2023 9:56 AM CDT 1. Normal ovaries and adnexa. No free fluid evident. 2. Intramural anterior uterine body fibroid measuring up to 1.2 cm as opposed to 1.1 cm previously intramural posterior uterine body fibroid measuring up to 1.5 cm as opposed to 1.6 cm previously. Dictated by Tariq Dean MD @ 09/10/2023 9:56:08 AM (Electronically Signed) Narrative 09/10/2023 9:56 AM CDT For Patients: ??As a result of the Century Cures Act, medical imaging exams and procedure reports are released immediately into your electronic medical record. ??You may view this report before your referring provider. ??If you have questions, please contact your health care provider. INDICATION: Left lower quadrant pain TECHNIQUE: Transabdominal and transvaginal scanning was performed. Transvaginal scanning was performed to optimally evaluate the endometrium and adnexa. Ovarian blood flow was evaluated with color-flow and pulsed Doppler. COMPARISON: Pelvic ultrasound of 09/17/2022 FINDINGS: The uterus is normal in size and shape. The uterus measures 6.8 x 5.4 x 4.1 cm. An intramural anterior uterine body fibroid measuring 1.2 x 1.2 x 1.0 cm is demonstrated and on the previous examination was measured at 1.1 x 0.7 x 0.7 cm. An intramural posterior uterine body fibroid measuring 1.5 x 1.5 x 1.1 cm is demonstrated and was previously measured at 1.6 x 1.5 x 1.2 cm. The endometrial stripe is normal in thickness at 2 mm. The ovaries are normal in size and contain a number of follicles. The right ovary measures 2.1 x 1.6 x 1.1 cm and left 1.7 x 1.0 x 0.9 cm. Ovarian blood flow is demonstrated with color-flow and pulsed Doppler. No adnexal mass is evident. No free fluid is demonstrated. Procedure Note Tariq Dean MD - 09/10/2023 For Patients: As a result of the Century Cures Act, medical imagingexams and procedure reports are released immediately into your electronicmedical record. You may view this report before your referring provider.If you have questions, please contact your health care provider. INDICATION: Left lower quadrant pain TECHNIQUE: Transabdominal and transvaginal scanning was performed. Transvaginalscanning was performed to optimally evaluate the endometrium and adnexa.Ovarian blood flow was evaluated with color-flow and pulsed Doppler. COMPARISON: Pelvic ultrasound of 09/17/2022 FINDINGS: The uterus is normal in size and shape. The uterus measures 6.8 x 5.4 x4.1 cm. An intramural anterior uterine body fibroid measuring 1.2 x 1.2 x 1.0 cmis demonstrated and on the previous examination was measured at 1.1 x 0.7x 0.7 cm. An intramural posterior uterine body fibroid measuring 1.5 x 1.5x 1.1 cm is demonstrated and was previously measured at 1.6 x 1.5 x 1.2cm. The endometrial stripe is normal in thickness at 2 mm. The ovaries are normal in size and contain a number of follicles. Theright ovary measures 2.1 x 1.6 x 1.1 cm and left 1.7 x 1.0 x 0.9 cm.Ovarian blood flow is demonstrated with color-flow and pulsed Doppler. No adnexal mass is evident. No free fluid is demonstrated. IMPRESSION: 1. Normal ovaries and adnexa. No free fluid evident. 2. Intramural anterior uterine body fibroid measuring up to 1.2 cm asopposed to 1.1 cm previously intramural posterior uterine body fibroidmeasuring up to 1.5 cm as opposed to 1.6 cm previously. Dictated by Tariq Dean MD @ 09/10/2023 9:56:08 AM (Electronically Signed) Grace GARZA US * SCAN CORRESP-IMAGING (08/05/2023 12:00 AM NUMERICAL CONTROL OPERATOR) Only the most recent of2 resultswithin the time period is included. Anatomical Region Laterality Modality Other Scanner OTHER * SCAN-CT INTERPRETATION (07/30/2023 12:00 AM NUMERICAL CONTROL OPERATOR) Anatomical Region Laterality Modality Other Scanner OTHER * XR MAMMO MARILU BILAT SCREEN (12/01/2022 1:10 PM CDT) Anatomical Region Laterality Modality BREASTS, Breast Left, Breast Right Bilateral Mammography Impressions 12/01/2022 1:37 PM CDT ??There is no radiographic evidence for malignancy. ??Recommend annual mammograms. MAMMOGRAM ASSESSMENT: ??ACR 1 Negative PATIENTS: You will also receive a letter with your examination results in an easy to read format. ??If you have questions about your results, please contact your referring provider. Narrative 12/01/2022 1:37 PM CDT For Patients: As a result of the Century Cures Act, medical imaging exams and procedure reports are released immediately into your electronic medical record. You may view this report before your referring provider. If you have questions, please contact your health care provider. XR MAMMO MARILU BILAT SCREEN [[id number]] CLINICAL HISTORY: ??This is an asymptomatic 52 y.o. patient. INDICATION FOR EXAM: Mammogram Screening. TECHNIQUE: CC & MLO views were obtained. ??This study was evaluated with the assistance of Computer-Aided Detection. Breast Tomosynthesis was used in interpretation. COMPARISON FILM: Yes 11/26/21 [facility] 07/05/20 [facility] FINDINGS: ??The breasts have scattered areas of fibroglandular density. There are no dominant masses, suspicious micro calcifications or areas of architectural distortion. Yvette Leong MD MAMMO * SCAN-COLONOSCOPY (10/28/2022 12:00 AM CDT) Scanner OTHER * (ABNORMAL) LC LIPID PANEL AND CHOL/HDL RATIO (08/19/2022 7:41 AM NUMERICAL CONTROL OPERATOR) Cholesterol, Total 269(H) 100 - 199 mg/dL 08/21/2022 11:10 AM [facility] Triglycerides 183(H) 0 - 149 mg/dL 08/21/2022 11:10 AM [facility] HDL Cholesterol 53 >39 mg/dL 11:10 AM [facility] VLDL Cholesterol Carl 34 5 - 40 mg/dL 08/21/2022 11:10 AM [facility] LDL Chol Calc ([facility]) 182(H) 0 - 99 mg/dL 08/21/2022 11:10 AM [facility] T. Chol/HDL Ratio 5.1(H) 0.0 - 4.4 ratio 08/21/2022 11:10 AM [facility] Comment: ?T. Chol/HDL Ratio ?Men ??Women ?1/2 Avg.Risk ??3.4 ?3.3 ?Avg.Risk ??5.0 ?4.4 ? 2X Avg.Risk ??9.6 ?7.1 ? 3X Avg.Risk 23.4 ?? 11.0 Blood BLOOD SPECIMEN / Unknown Venipuncture / Unknown 08/19/2022 7:41 AM NUMERICAL CONTROL OPERATOR 08/19/2022 7:44 AM NUMERICAL CONTROL OPERATOR Narrative [facility] - 08/21/2022 11:10 AM NUMERICAL CONTROL OPERATOR Performed at: ??01 - [address] ??[id number] Laboratory Secretary: Patrice Slade MD, Phone: ??[phone] Khadra Jolley MD SEND OUTS [facility]) [address] [place], [place] [id number] [[email or web address]] from Last 3 Months or Most Recently Relevant to Health Maintenance Advance Directives * Full Code (Latest Code Status on File) Date Activated Date Inactivated Comments 03/28/2022 7:40 AM 03/29/2022 2:29 AM Should be discussed pre operatively with anesthesia or surgeon Question Answer Comments Code Status Discussion: Not Discussed * Full Code Date Activated Date Inactivated Comments 11/15/2020 5:51 AM 11/15/2020 2:37 PM Question Answer Comments Code Status Discussion: Discussed * Full Code Date Activated Date Inactivated Comments 04/10/2014 5:37 AM 04/10/2014 4:24 PM Care Teams Skinning Machine Feeder Relationship Specialty Start Date End Date Yvette Leong MD [address] [place] [address] PCP - General Family Practice 10/03/21 Neil Carlos MD [address] [place] [address] Consulting Physician Cardiovascular Disease 03/30/14 Veronika Perez, plan examiner Nurse Navigator Registered Nurse 07/30/20
[2023-10-08 02:58] LABS: Basophils Absolute Auto 0.04 K/uL (0.00-0.30); Basophils Percent Auto 0.5 % (0.0-3.0); Eosinophils Absolute Auto 0.35 K/uL (0.00-0.50); Hematocrit 44.1 % (33.0-51.0); Hemoglobin* 14.7 gm/dL (12.0-16.0); Immature Granulocytes Abs Auto 0.05 K/uL (0.00-0.30); Immature Granulocytes Pct Auto 0.6 %; Lymphocytes Percent Auto 48.1 % (20-44); Mean Corpuscular HGB Conc 33 gm/dL (32-36); Mean Corpuscular Hemoglobin 30 pg (26-34); Mean Corpuscular Volume 89 fL (80-100); Monocytes Percent Auto 7.3 % (0.0-11.0); Neutrophils Percent Auto 39.5 % (42.0-72.0); Platelet Count* 283 K/uL (140-440); RDW Coefficient of Variation % 12.8 % (11.5-15.5); Red Blood Count 4.96 m/uL (4.00-5.20); Slide Review Reflex No; White Blood Count* 8.78 K/uL (4.50-11.00)
[2023-10-08 03:03] LABS: NT Pro B Type NatriureticPept* < 20 pg/mL
[2023-10-08] MEDS: 0.9 % SODIUM CHLORIDE 1000 ml 1,000 ML IV (03:03)
[2023-10-08 03:08] LABS: C Reactive Protein* < 0.5 mg/dL (0.5-1.0)
[2023-10-08 03:24] VITALS: BP 109/82; PULSE 75; RESP 96; O2SAT 96
[2023-10-08] MEDS: GI COCKTAIL (VISC LIDO/ANTACID) 30 ML PO (03:35)
[2023-10-08] MEDS: ONDANSETRON 2 MG/ML inj 4 MG IVP (03:36)
[2023-10-08] MEDS: MECLIZINE HCL 25 MG TABLET PO (03:36)
[2023-10-08 04:24] VITALS: BP 106/70; PULSE 66; RESP 15; O2SAT 94
== END 2023-10-08 05:11 | disposition home or self-care (01) ==
PROVIDERS: Emergency Provider Family Medicine; PCP Student in an Organized Health Care Education/Training Program
DX: R07.9 Chest pain, unspecified (principal)
CPT/HCPCS: 36415; 71045; 80048; 80076; 83690; 83735; 83880; 84484; 85025; 85379; 86140; 96374; 99284; A9270; J2405; J7030